=== PATIENT | male | born 1940 | race Caucasian/White ===

== ENCOUNTER 2017-03-08 10:02 | Outpatient (CLI) | payer MEDICARE, OTHER ==
[2017-03-08 17:59] LABS: BASOPHILS % (AUTO) 0.7 %; EOSINOPHILS # (AUTO) 0.3 10^3/uL (0.0-0.7); EOSINOPHILS % (AUTO) 4.8 %; HCT - HEMATOCRIT 44.8 % (42.0-52.0); HGB - HEMOGLOBIN 15.2 g/dL (14.0-18.0); LYMPHOCYTES # (AUTO) 0.9 10^3/uL (1.5-3.5); LYMPHOCYTES % (AUTO) 16.6 %; MONOCYTES # (AUTO) 0.5 10^3/uL (0.0-1.0); MONOCYTES % (AUTO) 9.3 %; NEUTROPHILS # (AUTO) 3.8 10^3/uL (1.5-6.6); NEUTROPHILS % (AUTO) 68.6 %; RED BLOOD COUNT 4.62 10^6/uL (4.70-6.10); RED CELL DISTRIBUTION WIDTH 13.2 % (12.0-15.0); UNCORRECTED WHITE BLOOD COUNT 5.6 x10^3/uL; WHITE BLOOD COUNT 5.6 x10^3/uL (4.8-10.8)
[2017-03-08 18:29] LABS: ALBUMIN/GLOBULIN RATIO 2.1 (1.0-2.2); BUN - BLOOD UREA NITROGEN 15 mg/dL (6-20); CALCIUM 9.4 mg/dL (8.5-10.3); CARBON DIOXIDE - CO2 27 mmol/L (21-32); CHLORIDE 101 mmol/L (101-111); CHOL/HDL RATIO 2.8 (<5.0); CHOLESTEROL 187 mg/dL; CREATININE 0.6 mg/dL (0.6-1.2); GFR - MDRD 132 (>89); GLUCOSE 103 mg/dL (70-100); HDL CHOLESTEROL 68 mg/dL; LDL/HDL RATIO 1.6 (<3.6); SODIUM 136 mmol/L (135-145); TOTAL PROTEIN 6.6 g/dL (6.7-8.2); TRIGLYCERIDES 63 mg/dL; VLDL CHOLESTEROL 13 mg/dL
== END 2017-03-08 10:03 | disposition home or self-care (01) ==
LOC: LAB.F 10:02
PROVIDERS: ATTEND Physician Assistant Medical
DX: R97.20 Elevated prostate specific antigen [PSA] (principal); E78.5 Hyperlipidemia, unspecified; I10 Essential (primary) hypertension; M17.9 Osteoarthritis of knee, unspecified
CPT/HCPCS: 36415; 80053; 80061; 85025; G0103; 84153

== ENCOUNTER 2017-04-08 12:08 | Emergency (ER) | payer MEDICARE, OTHER ==
[2017-04-08 12:16] VITALS: BP 152/60
[2017-04-08 12:45] LABS: PH,URINE 6.5 PH (5.0-7.5)
[2017-04-08 13:10] LABS: BILIRUBIN,URINE NEGATIVE (NEGATIVE); UA w/ MICROSCOPIC CHARGE YES
[2017-04-08 13:13] LABS: UR CULTURE IF IND INDICATED
--- NOTE | 2017-04-08 13:13 | ED Physician Documentation ---
PD HPI MALE - Stated complaint Stated Complaint: MALE URINATING BLOOD - Chief complaint Chief Complaint: General - History obtained from History obtained from: Patient - History of Present Illness Timing - onset: Yesterday Timing - details: Abrupt onset, Still present Associated symptoms: Dysuria, Urinary frequency, Hematuria Similar symptoms before: Has not had sx before Recently seen: Not recently seen Review of Systems Constitutional: reports: Chills, Myalgias (since yesterday). denies: Fever Nose: denies: Rhinorrhea / runny nose, Congestion Throat: denies: Sore throat Respiratory: denies: Cough GI: denies: Abdominal Pain, Vomiting, Diarrhea : reports: Dysuria, Frequency. denies: Discharge Skin: denies: Rash, Lesions PD PAST MEDICAL HISTORY - Past Medical History Past Medical History: Yes Cardiovascular: Hypertension Other Past Medical History: uti - Past Surgical History Past Surgical History: Yes - Present Medications Home Medications: Ambulatory Orders Medication Instructions Recorded Confirmed Blood Pressure Med And Water Pill 04/08/17 Sulfamethox/Trimeth 800/160 1 each PO BID #14 tablet 04/08/17 [Bactrim Ds 800/160] - Allergies Allergies/Adverse Reactions: Allergies Allergy/AdvReac Type Severity Reaction Status Date / Time No Known Drug Allergies Allergy Verified 04/08/17 12:17 - Social History Does the pt smoke?: No Smoking Status: Never smoker Does the pt drink ETOH?: Yes PD ED PE NORMAL - Vitals Vital signs reviewed: Yes - General General: Alert and oriented X 3, No acute distress, Well developed/nourished - Neck Neck: Supple, no meningeal sign, No adenopathy - Cardiac Cardiac: RRR, No murmur - Respiratory Respiratory: Clear bilaterally - Abdomen Abdomen: Soft, Non tender - Male Male : 3D Technologist 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 no scrotal swelling nor tenderness. No hernia. ) - Back Back: No CVA TTP - Derm Derm: Normal color, Warm and dry, No rash Results - Vitals Vitals: Vital Signs - 24 hr 04/08/17 12:13 Temperature 36.8 C Heart Rate 76 Respiratory 18 Rate Blood Pressure 152/60 H O2 Saturation 99 Oxygen O2 Source Room air - Labs Labs: Laboratory Tests 04/08/17 02:20 Urine Color DARK YELLOW Urine Clarity CLOUDY Urine pH 6.5 Ur Specific [place] 1.020 Urine Protein 100 H Urine Glucose (UA) NEGATIVE Urine Ketones TRACE Urine Occult Blood LARGE H Urine Nitrite NEGATIVE Urine Bilirubin NEGATIVE Urine Urobilinogen 0.2 (NORMAL) Ur Leukocyte Esterase TRACE H Urine RBC TNTC H Urine WBC 6-10 H Ur Squamous Epith Cells RARE Squamous Urine Bacteria Few Ur Microscopic Review INDICATED Urine Culture Comments INDICATED PD MEDICAL DECISION MAKING - ED course Complexity details: reviewed results, considered differential (symptoms an UA most c/w UTI. ), d/w patient Departure - Departure Disposition: Home, Self Care Clinical Impression: UTI (urinary tract infection) Qualifiers: Urinary tract infection type: acute cystitis Hematuria presence: with hematuria Qualified Code(s): N30.01 - Acute cystitis with hematuria Condition: Stable Record reviewed to determine appropriate education?: Yes Instructions: ED UTI Cystitis Male Follow-Up: Michaelle Gill PA-C [Primary Care Provider] - Prescriptions: Sulfamethox/Trimeth 800/160 [Bactrim Ds 800/160] 1 each PO BID #14 tablet Comments: Drink adequate fluids. Bactrim twice daily for a week for infection. Recheck if not improved over the next few days. Discharge Date/Time: 04/08/17 13:33
[2017-04-08] MEDS ORDERED: SULFAMETH/TRIMETH DS 800/160 MG TABLET PO STA (13:26)
[2017-04-08] MEDS ORDERED: SULFAMETH/TRIMETH DS 800/160 MG TABLET PO ONE (13:27)
== END 2017-04-08 13:33 | disposition home or self-care (01) ==
LOC: ED 12:08
DX: N30.01 Acute cystitis with hematuria (principal); Z87.440 Personal history of urinary (tract) infections; I10 Essential (primary) hypertension
CPT/HCPCS: 81001; 87077; 87086; 87181; 99283; A9270; 81003

== ENCOUNTER 2017-09-18 08:00 | Outpatient (CLI) | payer MEDICARE, OTHER | END 2017-09-18 23:59 | disposition home or self-care (01) | LOC: LAB.F 08:00 | PROVIDERS: ATTEND Urology | DX: R97.20 Elevated prostate specific antigen [PSA] (principal) | CPT/HCPCS: 36415; 84153 ==

== ENCOUNTER 2018-03-12 09:23 | Outpatient (CLI) | payer MEDICARE, OTHER ==
[2018-03-12 17:43] LABS: BASOPHILS # (AUTO) 0.1 10^3/uL (0.0-0.1); BASOPHILS % (AUTO) 0.9 %; EOSINOPHILS # (AUTO) 0.3 10^3/uL (0.0-0.7); EOSINOPHILS % (AUTO) 5.1 %; LYMPHOCYTES # (AUTO) 0.9 10^3/uL (1.5-3.5); LYMPHOCYTES % (AUTO) 14.8 %; MEAN CORPUSCULAR HEMOGLOBIN 32.6 pg (27.0-31.0); MEAN CORPUSCULAR HGB CONC 33.8 g/dL (32.0-36.0); MEAN CORPUSCULAR VOLUME 96.4 fL (80.0-94.0); MEAN PLATELET VOLUME 8.2 fL (7.4-11.4); MONOCYTES # (AUTO) 0.5 10^3/uL (0.0-1.0); MONOCYTES % (AUTO) 8.4 %; NEUTROPHILS # (AUTO) 4.3 10^3/uL (1.5-6.6); NEUTROPHILS % (AUTO) 70.8 %; PLT - PLATELET COUNT 204 10^3/uL (130-450); RED CELL DISTRIBUTION WIDTH 13.4 % (12.0-15.0); WHITE BLOOD COUNT 6.1 x10^3/uL (4.8-10.8)
[2018-03-12 17:55] LABS: ALBUMIN 3.9 g/dL (3.2-5.5); ALBUMIN/GLOBULIN RATIO 1.3 (1.0-2.2); ALKALINE PHOSPHATASE 60 IU/L (42-121); ALT ALANINE AMINOTRANSFERASE 19 IU/L (10-60); AST ASPARTATE AMINOTRANSFERASE 26 IU/L (10-42); BILIRUBIN,TOTAL 0.9 mg/dL (0.2-1.0); BUN - BLOOD UREA NITROGEN 18 mg/dL (6-20); CALCIUM 9.1 mg/dL (8.5-10.3); CARBON DIOXIDE - CO2 27 mmol/L (21-32); CHLORIDE 98 mmol/L (101-111); CHOL/HDL RATIO 2.1 (<5.0); CHOLESTEROL 158 mg/dL; CREATININE 0.7 mg/dL (0.6-1.2); GFR - MDRD 110 (>89); GLUCOSE 101 mg/dL (70-100); HDL CHOLESTEROL 74 mg/dL; LDL CHOLESTEROL,CALCULATED 68 mg/dL; LDL/HDL RATIO 0.9 (<3.6); SODIUM 134 mmol/L (135-145); TOTAL PROTEIN 6.8 g/dL (6.7-8.2); VLDL CHOLESTEROL 16 mg/dL
== END 2018-03-12 09:24 | disposition home or self-care (01) ==
LOC: LAB.F 09:23
PROVIDERS: ATTEND Physician Assistant Medical
DX: E78.5 Hyperlipidemia, unspecified (principal); R97.20 Elevated prostate specific antigen [PSA]; J44.9 Chronic obstructive pulmonary disease, unspecified; I10 Essential (primary) hypertension
CPT/HCPCS: 36415; 80053; 80061; 83721; 84153; 85025

== ENCOUNTER 2018-10-10 09:24 | Outpatient (CLI) | payer MEDICARE, OTHER ==
[2018-10-10 19:06] LABS: PSA FREE 0.63 ng/mL (0.16-2.81)
[2018-10-10 19:07] LABS: PSA TOTAL 3.215 ng/mL (0.000-2.000)
== END 2018-10-10 09:25 | disposition home or self-care (01) ==
LOC: LAB.F 09:24
PROVIDERS: ATTEND Physician Assistant Medical
DX: R97.20 Elevated prostate specific antigen [PSA] (principal)
CPT/HCPCS: 36415; 84153; 84154

== ENCOUNTER 2019-04-04 09:21 | Outpatient (CLI) | payer MEDICARE, OTHER ==
[2019-04-04 17:41] LABS: BASOPHILS # (AUTO) 0.1 10^3/uL (0.0-0.1); BASOPHILS % (AUTO) 1.7 %; EOSINOPHILS # (AUTO) 0.3 10^3/uL (0.0-0.7); EOSINOPHILS % (AUTO) 9.5 %; HGB - HEMOGLOBIN 13.8 g/dL (14.0-18.0); LYMPHOCYTES # (AUTO) 0.8 10^3/uL (1.5-3.5); LYMPHOCYTES % (AUTO) 23.9 %; MEAN CORPUSCULAR HEMOGLOBIN 35.6 pg (27.0-31.0); MEAN CORPUSCULAR HGB CONC 35.6 g/dL (32.0-36.0); MEAN PLATELET VOLUME 9.9 fL (7.4-11.4); MONOCYTES # (AUTO) 0.6 10^3/uL (0.0-1.0); MONOCYTES % (AUTO) 16.7 %; NEUTROPHILS # (AUTO) 1.7 10^3/uL (1.5-6.6); NEUTROPHILS % (AUTO) 47.9 %; PLT - PLATELET COUNT 174 10^3/uL (130-450); RED BLOOD COUNT 3.88 10^6/uL (4.70-6.10); RED CELL DISTRIBUTION WIDTH 13.7 % (12.0-15.0); WHITE BLOOD COUNT 3.5 x10^3/uL (4.8-10.8)
[2019-04-04 18:29] LABS: ALBUMIN/GLOBULIN RATIO 1.5 (1.0-2.2); ALKALINE PHOSPHATASE 50 IU/L (42-121); ALT ALANINE AMINOTRANSFERASE 17 IU/L (10-60); AST ASPARTATE AMINOTRANSFERASE 22 IU/L (10-42); BUN - BLOOD UREA NITROGEN 20 mg/dL (6-20); CALCIUM 9.2 mg/dL (8.5-10.3); CARBON DIOXIDE - CO2 28 mmol/L (21-32); CHLORIDE 101 mmol/L (101-111); CHOL/HDL RATIO 2.9 (<5.0); CHOLESTEROL 224 mg/dL; CREATININE 0.8 mg/dL (0.6-1.2); GFR - MDRD 94 (>89); GLUCOSE 100 mg/dL (70-100); HDL CHOLESTEROL 76 mg/dL; LDL CHOLESTEROL,CALCULATED 140 mg/dL; LDL/HDL RATIO 1.8 (<3.6); SODIUM 137 mmol/L (135-145); TOTAL PROTEIN 6.6 g/dL (6.7-8.2); VLDL CHOLESTEROL 8 mg/dL
== END 2019-04-04 09:22 | disposition home or self-care (01) ==
LOC: LAB.S 09:21
PROVIDERS: ATTEND Physician Assistant Medical
DX: I10 Essential (primary) hypertension (principal); E78.5 Hyperlipidemia, unspecified
CPT/HCPCS: 36415; 80053; 80061; 83721; 84443; 85025

== ENCOUNTER 2019-05-15 15:14 | Outpatient (CLI) | payer MEDICARE, OTHER ==
[2019-05-15 17:27] LABS: BASOPHILS # (AUTO) 0.1 10^3/uL (0.0-0.1); BASOPHILS % (AUTO) 0.9 %; EOSINOPHILS # (AUTO) 0.4 10^3/uL (0.0-0.7); EOSINOPHILS % (AUTO) 6.4 %; HGB - HEMOGLOBIN 14.2 g/dL (14.0-18.0); LYMPHOCYTES % (AUTO) 18.4 %; MEAN CORPUSCULAR HEMOGLOBIN 33.5 pg (27.0-31.0); MEAN CORPUSCULAR HGB CONC 34.5 g/dL (32.0-36.0); MEAN CORPUSCULAR VOLUME 97.2 fL (80.0-94.0); MEAN PLATELET VOLUME 9.4 fL (7.4-11.4); MONOCYTES # (AUTO) 0.7 10^3/uL (0.0-1.0); MONOCYTES % (AUTO) 12.3 %; NEUTROPHILS # (AUTO) 3.4 10^3/uL (1.5-6.6); NEUTROPHILS % (AUTO) 61.8 %; PLT - PLATELET COUNT 202 10^3/uL (130-450); RED BLOOD COUNT 4.24 10^6/uL (4.70-6.10); RED CELL DISTRIBUTION WIDTH 12.6 % (12.0-15.0); WHITE BLOOD COUNT 5.4 x10^3/uL (4.8-10.8)
[2019-05-15 17:39] LABS: % IRON SATURATION 26 % (20-50); IRON 90 ug/dL (45-182); TOTAL IRON BINDING CAPACITY 347 ug/dL (250-450); TRANSFERRIN 248 mg/dL (180-329)
[2019-05-15 17:54] LABS: FERRITIN 48.6 ng/mL (23.9-336.2)
[2019-05-15 17:57] LABS: FOLATE 18.92 ng/mL (5.90 - >24.8)
== END 2019-05-15 15:15 | disposition home or self-care (01) ==
LOC: LAB.S 15:14
PROVIDERS: ATTEND Physician Assistant Medical
DX: D64.9 Anemia, unspecified (principal)
CPT/HCPCS: 36415; 82607; 82728; 82746; 82747; 83540; 84466; 85025

== ENCOUNTER 2020-03-19 12:11 | Outpatient (CLI) | payer MEDICARE, OTHER ==
--- NOTE | 2020-03-19 12:49 | XRAY Report ---
PROCEDURE: Ankle 3 View LT INDICATIONS: PRESSURE ULCER TECHNIQUE: 3 views of the ankle were acquired. COMPARISON: None FINDINGS: A metallic BB marker was placed on the skin at the site of the patient's ulcer, overlying the lateral malleolus. There is no definite osteolytic lesion of the underlying inferior lateral malleolus as we ll as the adjacent lateral process of the talus. There are severe degenerative changes in the ankle m ortise. IMPRESSION: Soft tissue ulcer adjacent to the lateral malleolus. No definite evidence of an underlyin g destructive osseous lesion. Reviewed by: Noah Coker MD on 03/19/2020 12:48 PM PDT Approved by: Noah Coker MD on 03/19/2020 12:48 PM PDT Station ID: [id number]
== END 2020-03-19 12:12 | disposition home or self-care (01) ==
LOC: DI 12:11
PROVIDERS: ATTEND Podiatrist
DX: L89.529 Pressure ulcer of left ankle, unspecified stage (principal)

== ENCOUNTER 2020-08-28 09:39 | Outpatient (CLI) | payer MEDICARE, OTHER ==
[2020-08-28 14:30] LABS: BASOPHILS % (AUTO) 0.9 %; EOSINOPHILS # (AUTO) 0.4 10^3/uL (0.0-0.7); EOSINOPHILS % (AUTO) 7.9 %; HGB - HEMOGLOBIN 14.6 g/dL (14.0-18.0); LYMPHOCYTES # (AUTO) 0.8 10^3/uL (1.5-3.5); MEAN CORPUSCULAR HEMOGLOBIN 34.8 pg (27.0-31.0); MEAN CORPUSCULAR HGB CONC 35.4 g/dL (32.0-36.0); MEAN CORPUSCULAR VOLUME 98.3 fL (80.0-94.0); MEAN PLATELET VOLUME 10.2 fL (7.4-11.4); MONOCYTES # (AUTO) 0.5 10^3/uL (0.0-1.0); MONOCYTES % (AUTO) 10.4 %; NEUTROPHILS % (AUTO) 63.4 %; PLT - PLATELET COUNT 193 10^3/uL (130-450); RED CELL DISTRIBUTION WIDTH 12.5 % (12.0-15.0); WHITE BLOOD COUNT 4.7 x10^3/uL (4.8-10.8)
== END 2020-08-28 09:40 | disposition home or self-care (01) ==
LOC: LAB.S 09:39
PROVIDERS: ATTEND Physician Assistant Medical
DX: E78.5 Hyperlipidemia, unspecified (principal); D64.9 Anemia, unspecified
CPT/HCPCS: 36415; 80053; 80061; 83721; 85025

== ENCOUNTER 2020-08-31 07:00 | Outpatient (CLI) | payer MEDICARE, OTHER ==
[2020-08-31 19:03] LABS: ALBUMIN 4.4 g/dL (3.2-5.5); ALBUMIN/GLOBULIN RATIO 1.8 (1.0-2.2); ALKALINE PHOSPHATASE 60 IU/L (42-121); ALT ALANINE AMINOTRANSFERASE 17 IU/L (10-60); AST ASPARTATE AMINOTRANSFERASE 22 IU/L (10-42); BILIRUBIN,TOTAL 1.1 mg/dL (0.2-1.0); BUN - BLOOD UREA NITROGEN 20 mg/dL (6-20); CALCIUM 9.2 mg/dL (8.5-10.3); CARBON DIOXIDE - CO2 28 mmol/L (21-32); CHLORIDE 100 mmol/L (101-111); CHOL/HDL RATIO 3.2 (<5.0); CHOLESTEROL 260 mg/dL; CREATININE 0.7 mg/dL (0.6-1.2); GLUCOSE 100 mg/dL (70-100); HDL CHOLESTEROL 81 mg/dL; LDL CHOLESTEROL,CALCULATED 168 mg/dL; LDL/HDL RATIO 2.1 (<3.6); SODIUM 136 mmol/L (135-145); TOTAL PROTEIN 6.9 g/dL (6.7-8.2); VLDL CHOLESTEROL 11 mg/dL
== END 2020-08-31 23:59 | disposition home or self-care (01) ==
LOC: LAB.WCP 07:00
PROVIDERS: ATTEND Physician Assistant Medical
DX: E78.5 Hyperlipidemia, unspecified (principal)
CPT/HCPCS: 36415; 80053; 80061; 83721

== ENCOUNTER 2020-10-12 14:28 | Day surgery (SDC) | payer MEDICARE, OTHER ==
[2020-10-12] MEDS ORDERED: LACTATED RINGERS 1,000 ML IV ONE (14:33)
--- NOTE | 2020-10-12 15:38 | ANESTHESIA ---
Pre-Anesthesia VS, & Labs - Diagnosis screening - Procedure colonoscopy Vital Signs: Temp Pulse Resp BP Pulse Ox 36.2 C L 77 14 180/86 H 96 10/12/20 14:33 10/12/20 14:33 10/12/20 14:33 10/12/20 14:33 10/12/20 14:33 Height: 5 ft 11 in Weight (kg): 76.6 kg Body Mass Index: 23.6 BMI Classification: Healthy weight - NPO >8 hours - Lab Results Lab results reviewed: Yes Home Medications and Allergies Home Medications: Ambulatory Orders Ascorbic Acid [Vitamin C] 1,000 mg PO DAILY 10/05/20 Flaxseed Oil 1,000 mg PO DAILY 10/05/20 Multivitamin 1 each PO DAILY 10/05/20 Albuterol Sulf [Ventolin Hfa Inhaler] 1 - 2 puffs INH Q4HR PRN 07/24/17 Fluticasone [Flonase] 1 sprays SANDRA DAILY 07/24/17 Fluticasone/Salmeterol [Advair 250-50 Diskus] 1 each IH DAILY 07/24/17 Hydrochlorothiazide 12.5 mg PO DAILY 07/24/17 lisinopriL [Lisinopril] 10 mg PO DAILY 07/24/17 Ascorbic Acid [Vitamin C] 1,000 mg PO DAILY 10/05/20 Flaxseed Oil 1,000 mg PO DAILY 10/05/20 Multivitamin 1 each PO DAILY 10/05/20 Allergies/Adverse Reactions: Allergies Allergy/AdvReac Type Severity Reaction Status Date / Time No Known Drug Allergies Allergy Verified 04/08/17 12:17 Anes History & Medical History - Anesthetic History Anesthesia Complications: reports: No previous complications Family history of Anesthesia Complications: Denies Family history of Malignant Hyperthermia: Denies - Medical History Cardiovascular: reports: Hypertension, High cholesterol Pulmonary: reports: COPD Gastrointestinal: reports: Colon polyps Urinary: reports: None Musculoskeletal: reports: Osteoarthritis Endocrine/Autoimmune: reports: None Skin: reports: None Smoking Status: Never smoker - Surgical History General: Colonoscopy, Other Orthopedic: Knee replacement, Shoulder arthroplasty Exam General: Alert, Oriented x3, Cooperative Dental: WNL Mouth Openin Fingerbreadth Neck Mobility: Normal Mallampati classification: II Thyromental Distance: greater than 6 cm Respiratory: Lungs clear, No respiratory distress, Decreased breath sounds Cardiovascular: Regular rate Neurological: Normal speech Mental/Cognitive Status: Alert/Oriented X3, Normal for patient Cognitive Status: Within normal limits Plan Anesthesia Type: MAC Regional Block: Per Surgeon's request for Post Op pain control Consent for Procedure(s) Verified and Reviewed: Yes Code Status: Attempt Resuscitation ASA classification: 2-Mild systemic disease Is this case an emergency?: No
[2020-10-12] MEDS ORDERED: MIDAZOLAM 2 MG/2 ML VIAL ONE (15:42)
[2020-10-12] MEDS ORDERED: PROPOFOL 200 MG/20 ML VIAL IVP ONE ×2 (15:42→16:55)
[2020-10-12] MEDS ORDERED: LIDOCAINE-MPF 2% 5 ML VIAL ONE (15:42)
[2020-10-12] MEDS ORDERED: fentaNYL 100 MCG/2 ML VIAL ONE (15:42)
[2020-10-12] MEDS ORDERED: LACTATED RINGERS 100 ML IV ONE (17:13)
[2020-10-12 17:38] VITALS: BP 130/76
== END 2020-10-12 14:29 | disposition home or self-care (01) ==
LOC: SDS 14:28
PROVIDERS: ATTEND Surgery
DX: Z12.11 Encounter for screening for malignant neoplasm of colon (principal); Z86.010 Personal history of colon polyps; Z90.49 Acquired absence of other specified parts of digestive tract; D64.9 Anemia, unspecified; J44.9 Chronic obstructive pulmonary disease, unspecified; I10 Essential (primary) hypertension; E78.5 Hyperlipidemia, unspecified; M19.012 Primary osteoarthritis, left shoulder; Z79.51 Long term (current) use of inhaled steroids; Z79.1 Long term (current) use of non-steroidal anti-inflammatories (NSAID); Z79.899 Other long term (current) drug therapy; Z87.891 Personal history of nicotine dependence
CPT/HCPCS: G0105; J7120

== ENCOUNTER 2021-01-17 09:35 | Outpatient (CLI) | payer MEDICARE, OTHER ==
[2021-01-17 14:47] LABS: CHOLESTEROL 267 mg/dL; HDL CHOLESTEROL 89 mg/dL; LDL CHOLESTEROL,CALCULATED 167 mg/dL; LDL/HDL RATIO 1.9 (<3.6); TRIGLYCERIDES 56 mg/dL; VLDL CHOLESTEROL 11 mg/dL
== END 2021-01-17 09:36 | disposition home or self-care (01) ==
LOC: LAB.S 09:35
PROVIDERS: ATTEND Physician Assistant Medical
DX: E78.5 Hyperlipidemia, unspecified (principal)
CPT/HCPCS: 36415; 80061; 83721

== ENCOUNTER 2021-04-21 10:00 | Outpatient (CLI) | payer MEDICARE, OTHER ==
[2021-04-21 15:25] LABS: CHOL/HDL RATIO 2.1 (<5.0); CHOLESTEROL 165 mg/dL; HDL CHOLESTEROL 80 mg/dL; TRIGLYCERIDES 33 mg/dL
== END 2021-04-21 10:01 | disposition home or self-care (01) ==
LOC: LAB.S 10:00
PROVIDERS: ATTEND Physician Assistant Medical
DX: E78.5 Hyperlipidemia, unspecified (principal)
CPT/HCPCS: 36415; 80061; 83721

== ENCOUNTER 2021-11-18 08:00 | Outpatient (CLI) | payer MEDICARE, OTHER | END 2021-11-18 08:01 | disposition home or self-care (01) | LOC: LAB.WCP 08:00 | PROVIDERS: ATTEND Physician Assistant Medical | DX: L90.5 Scar conditions and fibrosis of skin (principal) | CPT/HCPCS: 87070; 87205 ==

== ENCOUNTER 2022-03-14 09:55 | Outpatient (CLI) | payer MEDICARE, OTHER ==
[2022-03-14 14:08] LABS: BASOPHILS # (AUTO) 0.1 10^3/uL (0.0-0.1); EOSINOPHILS # (AUTO) 0.4 10^3/uL (0.0-0.7); EOSINOPHILS % (AUTO) 7.2 %; HCT - HEMATOCRIT 40.9 % (42.0-52.0); LYMPHOCYTES # (AUTO) 0.8 10^3/uL (1.5-3.5); LYMPHOCYTES % (AUTO) 16.4 %; MEAN CORPUSCULAR HEMOGLOBIN 33.5 pg (27.0-31.0); MEAN CORPUSCULAR HGB CONC 34.2 g/dL (32.0-36.0); MEAN CORPUSCULAR VOLUME 97.8 fL (80.0-94.0); MEAN PLATELET VOLUME 10.1 fL (7.4-11.4); MONOCYTES # (AUTO) 0.7 10^3/uL (0.0-1.0); NEUTROPHILS # (AUTO) 3.1 10^3/uL (1.5-6.6); PLT - PLATELET COUNT 213 10^3/uL (130-450); RED BLOOD COUNT 4.18 10^6/uL (4.70-6.10); RED CELL DISTRIBUTION WIDTH 13.2 % (12.0-15.0); WHITE BLOOD COUNT 5.1 x10^3/uL (4.8-10.8)
== END 2022-03-14 09:56 | disposition home or self-care (01) ==
LOC: LAB.S 09:55
PROVIDERS: ATTEND Physician Assistant Medical
DX: D64.9 Anemia, unspecified (principal)
CPT/HCPCS: 36415; 85025

== ENCOUNTER 2022-04-08 08:00 | Outpatient (CLI) | payer MEDICARE, OTHER ==
--- NOTE | 2022-04-08 18:26 | XRAY Report ---
PROCEDURE: Lumbar Spine 2 View INDICATIONS: LUMBAR BACK PAIN TECHNIQUE: 3 views of the lumbar spine were acquired. COMPARISON: None. FINDINGS: Bones: This patient has transitional anatomy. For the purposes of this examination, the level with la st well-seen disc space is considered to be L5-S1. By the summary scheme, the level with a tiny vesti gial ribs is considered to be L1. Moderate levoconvex lumbar scoliosis is seen. There is minimal retrolisthesis seen at L1-L2, L2-L3, a nd L3-L4. There is moderate severe disc space narrowing seen at L1-L2, L2-L3, and L3-L4. Mild disc space narrow ing is seen at L4-L5 and L5-S1. No vertebral body compression fractures. No suspicious bony lesions. There is partial visualization of left proximal femur hardware. Soft tissues: Overlying bowel gas pattern is normal. No suspicious soft tissue calcifications. Ath erosclerotic calcification is seen. Numerous soft tissue sutures are seen. IMPRESSION: Moderate levoconvex scoliosis and degenerative changes are seen. If it would be helpful for clinical management decision making, please consider a dedicated, schedule d lumbar MRI for further evaluation (assuming that there is no contraindication). Reviewed by: Taiwo Cole MD on 04/08/2022 5:25 PM [facility] Approved by: Taiwo Cole MD on 04/08/2022 5:25 PM LIBORIO Station ID: [id number]
== END 2022-04-08 23:59 | disposition home or self-care (01) ==
LOC: DI.S 08:00
PROVIDERS: ATTEND Physician Assistant
DX: M47.816 Spondylosis without myelopathy or radiculopathy, lumbar region (principal); M47.817 Spondylosis without myelopathy or radiculopathy, lumbosacral region; M41.9 Scoliosis, unspecified

== ENCOUNTER 2022-05-15 08:47 | Outpatient (CLI) | payer MEDICARE, OTHER ==
--- NOTE | 2022-05-15 09:32 | XRAY Report ---
PROCEDURE: Eye Foreign Body INDICATIONS: PRE MRI TECHNIQUE: A single view of the orbits was acquired. COMPARISON: None FINDINGS: Soft tissues: No metallic foreign bodies are visualized around the orbits. Bones: Bony structures appear unremarkable. Visualized sinuses appear clear. IMPRESSION: No metallic foreign bodies are identified overlying the orbits. Reviewed by: Mera Hill MD on 05/15/2022 9:31 AM PDT Approved by: Mera Hill MD on 05/15/2022 9:31 AM PDT Station ID: [id number]
--- NOTE | 2022-05-15 13:23 | MRI Report ---
PROCEDURE: Lumbar Spine W/O INDICATIONS: LUMBAR RADICULOPATHY TECHNIQUE: Noncontrast sagittal T1 spin echo and T2 fast echo, sagittal STIR, axial T1 and T2 fast spin echo thr ough the lumbar spine. In cases with scoliosis, additional coronal T2 fast spin echo may be performe d. COMPARISON: None. FINDINGS: Image quality: Excellent. Alignment and Curvature: Transitional anatomy. For the purposes of this dictation, axial levels are d escribed as T12/L1 through L5/S1. Careful correlation for appropriate surgical level is recommended. At least moderate levocurvature centered at L1-L2. Mild degenerative retrolisthesis of L2 on L3. Mild degenerative anterolisthesis of L4 on L5. Mild degenerative anterolisthesis of L5 on S1. Bone Marrow: Marrow is of normal overall signal. No acute vertebral body compression fractures. Spinal Cord: Conus medullaris terminates at the L2 level. Visualized cord demonstrates normal signa l and size. Paraspinous Soft Tissues: No paravertebral masses. T12-L1: No canal stenosis or significant foraminal stenosis. L1-L2:Diffuse disc bulge. The distal cord is deviated to the right and is abutted by disc material. N o central canal stenosis. No significant foraminal stenosis. L2-L3: Mild degenerative retrolisthesis of L2 on L3. Bilateral facet hypertrophy. Conus is deviate d to the right. It is abutted by disc material. There is no significant central canal stenosis. There is moderate right foraminal narrowing with flattening deformity on the exiting right L2 nerve root. L3-L4: Disc bulge. Prominent bilateral facet hypertrophy. Severe central canal stenosis and marked bilateral lateral recess stenosis. Moderate to severe bilateral foraminal narrowing with a degree of bilateral foraminal L3 nerve root impingement. L4-L5: Normal in appearance. Large diffuse disc bulge. Marked facet hypertrophy. Severe canal steno sis. Moderate bilateral foraminal narrowing with flattening deformity on the exiting bilateral L4 ner ve roots. L5-S1: Disc bulge. Prominent bilateral facet hypertrophy. No central canal stenosis. Mild to modera te right foraminal narrowing. Moderate to severe left foraminal narrowing with a degree of left elder inal L5 nerve root impingement. IMPRESSION: 1. Transitional anatomy. Careful correlation is required for potential surgical planning. 2. Underlying scoliotic curvature and advanced multilevel facet arthropathy 3. Severe canal stenosis as described above at L3-L4 and L4-L5. 4. Multilevel foraminal narrowing as described above. Reviewed by: Lisandro Bailey MD on 05/15/2022 1:22 PM PDT Approved by: Lisandro Bailey MD on 05/15/2022 1:22 PM PDT Station ID: [id number]
== END 2022-05-15 08:48 | disposition home or self-care (01) ==
LOC: DI 08:47
PROVIDERS: ATTEND Physician Assistant
DX: Z01.818 Encounter for other preprocedural examination (principal); M43.16 Spondylolisthesis, lumbar region; M48.061 Spinal stenosis, lumbar region without neurogenic claudication; M54.16 Radiculopathy, lumbar region; M47.817 Spondylosis without myelopathy or radiculopathy, lumbosacral region; M48.07 Spinal stenosis, lumbosacral region

== ENCOUNTER 2023-09-29 08:00 | Outpatient (CLI) | payer MEDICARE, OTHER ==
[2023-09-29 18:22] LABS: BILIRUBIN,URINE NEGATIVE (NEGATIVE); GLUCOSE, URINE (UA) NEGATIVE (NEGATIVE); KETONES,URINE (UA) NEGATIVE (NEGATIVE); LEUKOCYTE ESTERASE, URINE NEGATIVE (NEGATIVE); NITRITE,URINE NEGATIVE (NEGATIVE); OCCULT BLOOD,URINE LARGE (NEGATIVE); PROTEIN,URINE 30 mg/dL (NEGATIVE); UROBILINOGEN,URINE 0.2 (NORMAL) E.U./dL (NORMAL)
[2023-09-29 18:23] LABS: CLARITY,URINE CLOUDY (CLEAR)
[2023-09-29 18:31] LABS: BACTERIA,URINE Rare /HPF (None Seen); RBC,URINE TNTC /HPF (0-5); SQUAMOUS EPITHELIAL CELL,UR RARE Squamous (<= Few)
== END 2023-09-29 23:59 | disposition home or self-care (01) ==
LOC: LAB.S 08:00
PROVIDERS: ATTEND Emergency Medicine
DX: R30.0 Dysuria (principal)
CPT/HCPCS: 81001

== ENCOUNTER 2024-12-17 09:38 | Inpatient (IN) ==
--- OUTSIDE RECORDS SUMMARY | 2024-12-17 09:51 | EXTERNAL MEDICAL SUMMARY RPT | Continuity of Care Document ---
Author Organization Reading Address [address] [place] [address] [address] Phone Problems date description facility 2024-09-18 12:15 Chest pain, unspecified [facility] 2024-10-21 08:23 Other symptoms and signs involv ing the nervous system [facility] 2024-10-31 12:52 Dysphasia [facility] 2024-11-28 00:05 Paroxysmal atrial fibrillation [facility] 2024-11-28 09:39 Paroxysmal atrial fibrillation [facility] 2024-11-28 09:39 Other symptoms and signs involv ing the nervous system [facility] 2024-11-28 09:39 Retention of urine, unspecified [facility] 2024-12-11 00:05 Elevated erythrocyte sedimentat ion rate [facility] 2024-12-11 12:25 Elevated erythrocyte sedimentat ion rate [facility] 2024-12-11 12:25 Abnormality of albumin [facility] 2024-12-12 05:47 Peripheral vascular disease, un specified [facility] 2024-12-12 05:47 Pressure ulcer of other site, [address] 2024-12-15 11:59 Peripheral vascular disease, un specified [facility] 2024-12-15 11:59 [facility] 2024-12-15 12:02 Peripheral vascular disease, un specified [facility] 2024-12-15 12:02 Pressure ulcer of other site, s [facility] 2024-12-16 09:13 Peripheral vascular disease, un specified [facility] 2024-12-16 09:13 Pressure ulcer of sacral region , stage 4 [facility] 2024-12-16 09:13 Pressure ulcer of other site, s [facility] 4 [facility] 2024-12-16 09:13 Non-pressure chronic ulcer of skin of other sites with fat layer exposed [facility] 2024-12-16 22:03 Urinary tract infection, site n ot specified [facility] 2024-12-16 22:03 Benign prostatic hyp erplasia without lower urinary tract symptoms [facility] 2024-12-17 08:28 Urinary tract infection, site n ot specified [facility] 2024-12-17 08:28 Benign prostatic hyp erplasia without lower urinary tract symptoms [facility] 2024-12-17 08:30 Urinary tract infection, site n ot specified [facility] 2024-12-17 08:30 Benign prostatic hyp erplasia without lower urinary tract symptoms [facility] Results/Labs test date facility value unit notes Result panel 1 CULTURE, BLOOD #1 2024-10-19 08:32 [facility] NG1D NO GROWTH AFTER 1 DAY (missing) (missing) CULTURE, BLOOD #1 2024-10-19 08:32 [facility] NG2D NO GROWTH AFTER 2 DAYS (missing) (missing) CULTURE, BLOOD #1 2024-10-19 08:32 [facility] NG5D NO GROWTH AFTER 5 DAYS (missing) (missing) Result panel 2 EOSINOPHILS # (AUTO) 2024-10-19 08:37 [facility] 0.0 10 3/ul (missing) NRBC ABSOLUTE COUNT (AUTO) 2024-10-19 08:37 [facility] 0.02 x10 3/ul (missing) BASOPHILS # (AUTO) 2024-10-19 08:37 [facility] 0.1 10 3/ul (missing) NUCLEATED RED BLOOD CELLS AUTO 2024-10-19 08:37 [facility] 0.2 /100wbc (missing) MONOCYTES # (AUTO) 2024-10-19 08:37 [facility] 0.5 10 3/ul (missing) LYMPHOCYTES # (AUTO) 2024-10-19 08:37 [facility] 0.5 10 3/ul (missing) BILIRUBIN,TOTAL 2024-10-19 08:37 [facility] 0.6 mg/dl As of March 2023 testing method has changed, this may include reference ranges. RBC MORPHOLOGY (MULTIPLE) 2024-10-19 08:37 [facility] 1+ POLYCHROMASIA (missing ) (missing) ALBUMIN/GLOBULIN RATIO 2024-10-19 08:37 [facility] 1.1 (missing ) (missing) GLUCOSE 2024-10-19 08:37 [facility] 109 mg/dl As of March 2023 testing method has changed, this may include reference ranges. WHITE BLOOD COUNT 2024-10-19 08:37 [facility] 11.6 x10 3/ul (missing) MEAN PLATELET VOLUME 2024-10-19 08:37 [facility] 11.7 fl (missing) HGB - HEMOGLOBIN 2024-10-19 08:37 [facility] 13.1 g/dl (missing) LIPASE 2024-10-19 08:37 [facility] 130 u/l As of March 2023 testing method has changed, this may include reference ranges. SODIUM 2024-10-19 08:37 [facility] 134 mmol/l As of March 2023 testing method has changed, this may include reference ranges. BUN - BLOOD UREA NITROGEN 2024-10-19 08:37 [facility] 136 mg/dl Critical result BUN 136 mg/dL called to and read back by MICHI Trotter RN/ED at 19-Oct-2024 09:22 by rodolfo. As of March 2023 testing method has changed, this may include reference ranges. CARBON DIOXIDE - CO2 2024-10-19 08:37 [facility] 14 mmol/l As of March 2023 testing method has changed, this may include reference ranges. RED CELL DISTRIBUTION WIDTH 2024-10-19 08:37 [facility] 15.4 % (missing) TROPONIN I HIGH SENSITIVITY 2024-10-19 08:37 [facility] 150.3 ng/l Critical result [facility] 150.3 pg/mL called to and read back by MICHI Trotter RN/ED at 19-Oct-2024 09:20 by rodolfo. A HIGH SENSITIVITY TROPONIN result of >= 14.9 ng/L for females is considered POSITIVE. A HIGH SENSITIVITY TROPONIN result of >= 19.8 ng/L for males is considered POSITIVE. A HIGH SENSITIVITY TROPONIN result of >= 17.9 ng/L for unspecified is considered POSITIVE. PLT - PLATELET COUNT 2024-10-19 08:37 [facility] 196 10 3/ul (missing) ALT ALANINE AMINOTRANSFERASE 2024-10-19 08:37 [facility] 198 iu/l As of March 2023 testing method has changed, this may include reference ranges. AST ASPARTATE AMINOTRANSFERASE 2024-10-19 08:37 [facility] 199 iu/l As of March 2023 testing method has changed, this may include reference ranges. LACTIC ACID, VENOUS 2024-10-19 08:37 [facility] 2.9 mmol/l N As of March 2023 testing method has changed, this may include reference ranges. ALKALINE PHOSPHATASE 2024-10-19 08:37 [facility] 239 iu/l As of March 2023 testing method has changed, this may include reference ranges. ANION GAP 2024-10-19 08:37 [facility] 25.0 (missing ) (missing) GLOBULIN 2024-10-19 08:37 [facility] 3.3 g/dl (missing) ALBUMIN 2024-10-19 08:37 [facility] 3.6 g/dl As of March 2023 testing method has changed, this may include reference ranges. MEAN CORPUSCULAR HEMOGLOBIN 2024-10-19 08:37 [facility] 30.8 pg (missing) MEAN CORPUSCULAR HGB CONC 2024-10-19 08:37 [facility] 32.0 g/dl (missing) RED BLOOD COUNT 2024-10-19 08:37 [facility] 4.25 10 6/ul (missing) HCT - HEMATOCRIT 2024-10-19 08:37 [facility] 41.0 % (missing) TOTAL PROTEIN 2024-10-19 08:37 [facility] 6.9 g/dl As of March 2023 testing method has changed, this may include reference ranges. GFR - MDRD 2024-10-19 08:37 [facility] 7 (missing ) Social History date description facility
--- NOTE | 2024-12-17 09:52 | ED Physician Documentation ---
History of Present Illness Stated complaint Stated Complaint: DECREASED LOC Chief complaint Chief Complaint: General History obtained from History obtained from: Patient, Family and EMS Additonal information Additional information: This is an 84-year-old gentleman who is at [facility] assisted living after a stroke. He was sent to [facility] in critical condition by my partner on October 19 and now is in [facility] for recovery. 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 He has indwelling Marie catheter. This morning he became lethargic and slow to answer questions. History from patient and EMS. He is having a lot of abdominal pain and feeling gassy. No reported fevers. Prehospital blood pressures were 70 systolic. Meds/Allgy Home Medications Ambulatory Orders Medication Instructions Recorded Confirmed ascorbic acid (vitamin C) 1,000 mg 1,000 mg PO DAILY 10/05/20 12/09/24 tablet multivitamin 1 ea PO DAILY 10/05/20 12/09/24 atorvastatin 40 mg tablet (Lipitor) 40 mg PO QDAY #90 tabs 10/16/24 12/09/24 clopidogrel 75 mg tablet 75 mg PO QDAY #90 tabs 10/16/24 12/09/24 empagliflozin 10 mg tablet 10 mg PO QDAY #90 tabs 10/16/24 12/09/24 ezetimibe 10 mg tablet 10 mg PO QDAY #90 tabs 10/16/24 12/09/24 fluticasone propionate 50 1 spray intranasal DAILY #16 grams 10/16/24 12/09/24 mcg/actuation nasal spray,suspension gabapentin 300 mg capsule 300 mg PO BID #180 caps 10/16/24 12/09/24 lisinopril 5 mg tablet 5 mg PO QDAY #90 tabs 10/16/24 12/09/24 nitroglycerin 0.4 mg sublingual 0.4 mg sublingual Q5M PRN chest 10/16/24 12/09/24 tablet pain #20 tabs spironolactone 25 mg tablet 25 mg PO QDAY #90 tabs 10/16/24 12/09/24 tiotropium bromide 2.5 2 inh inhalation QAM #4 grams 10/16/24 12/09/24 mcg/actuation mist for inhalation (Spiriva Respimat) apixaban 5 mg tablet 5 mg PO BID 12/09/24 12/09/24 carvedilol 3.125 mg tablet 3.125 mg PO BID 12/09/24 12/09/24 oxycodone 5 mg tablet 2.5 mg PO Q4H PRN pain 12/09/24 12/09/24 Allergies Allergies Allergy/AdvReac Type Severity Reaction Status Date / Time No Known Drug Allergies Allergy Verified 12/17/24 09:51 PFSH Active Problems All Active Problems (Updated 12/17/24 @ 11:43 by Aaron Valles MD) Constipation (Acute) Catheter-associated urinary tract infection (Acute) Sepsis (Acute) Non-pressure chronic ulcer of skin of other sites with fat layer exposed (Acute) Arterial insufficiency of lower extremity (Acute) Pressure injury of sacral region, stage 4 (Acute) Pressure injury of right calf, stage 4 (Acute) Closed head injury (Acute) Encephalopathy (Acute) Dehydration (Acute) Sepsis (Acute) Non-ST elevation [place] (NSTEMI) (Acute) Urinary tract infection (Acute) Acute renal failure (Acute) Pericarditis (Acute) Allergic rhinitis (Acute) Hyperlipidemia (Acute) Hx of adenomatous colonic polyps (Acute) Atrial fibrillation (Acute) Hematuria (Acute) COPD (chronic obstructive pulmonary disease) (Chronic) Hypertension, essential, benign (Acute) CHF (congestive heart failure) (Acute) CAD (coronary artery disease) (Acute) Iron deficiency anemia, unspecified (Acute) Arthritis of carpometacarpal (CMC) joint of right thumb (Acute) Medical History Medical History (Updated 12/17/24 @ 11:43 by Aaron Valles MD) Diabetes Social History Social History Smoking Status: Former smoker If you are a former smoker, when did you quit? (Date/Year): 1997 Do you dip or chew tobacco?: No Relationship: Do you feel safe in your home environment?: Yes Suffered physical, verbal, emotional, or financial abuse?: No ETOH Use: None Exam Exam Vital Signs: Vital Signs x48h Temp Pulse Resp BP Pulse Ox 12/17/24 10:30 75 24 113/56 L 96 12/17/24 10:15 71 21 95/61 94 12/17/24 10:10 36.6 C 66 18 78/56 L 95 04/02/25 09:40 36.2 C L 73 14 71/44 L 96 Constitutional He is slow to answer questions with slurred speech but technically alert and oriented knowing the date, where he is and why. He appears frail and pale. Respiratory breath sounds equal bilaterally, normal respiratory effort and clear to auscultation bilaterally Cardiovascular normal heart rate noted, regular rhythm noted and no murmur Gastrointestinal Quite tender in the low abdomen with extensive well-healed ex lap scar from penetrating trauma in [place]. Back/Pelvis There is a very large stage IV pressure ulcer over the sacrum and going poste riorly to the right, potential signs of infection medially. Lateral side looks noninfected. Extremities Stage IV purulent pressure ulcer lateral right lower leg without cellulitis. Psychiatry mental status abnormal (Slow to answer questions but actually alert and oriented.) Results Vitals Vitals: Vital Signs - 24 hr 12/17/24 09:40 12/17/24 10:10 12/17/24 10:15 Temperature 36.2 C L 36.6 C Temperature Source Temporal Artery Scan Oral Pulse Rate 73 66 71 Respiratory Rate 14 18 21 Blood Pressure 71/44 L 78/56 L 95/61 O2 Saturation 96 95 94 O2 Source Room air Room air Room air Pain Intensity 4 12/17/24 10:30 Temperature Temperature Source Pulse Rate 75 Respiratory Rate 24 Blood Pressure 113/56 L O2 Saturation 96 O2 Source Room air Pain Intensity Oxygen O2 Source Room air Labs Labs: Laboratory Tests 12/17/24 10:02 WBC 14.8 H RBC 3.75 L Hgb 11.0 L Hct 35.0 L MCV 93.3 MCH 29.3 MCHC 31.4 L RDW 17.4 H Plt Count 425 MPV 8.1 Neut # (Auto) 13.3 H Lymph # (Auto) 0.4 L [place] # (Auto) 0.9 Eos # (Auto) 0.0 Baso # (Auto) 0.0 Absolute Nucleated RBC 0.00 Nucleated RBC % 0.0 PT 16.4 H INR 1.5 H VBG pH 7.396 VBG pCO2 36.3 L VBG pO2 27.4 VBG HCO3 22.5 L VBG Total CO2 23.6 L VBG O2 Saturation 32.0 L VBG Base Excess -2.6 L Sodium 129 L Potassium 4.0 Chloride 97 L Carbon Dioxide 25 Anion Gap 7.0 BUN 31 H Creatinine 0.8 Estimated GFR (MDRD) 93 Glucose 133 H Lactic Acid 2.0 Calcium 8.5 Magnesium 2.1 Total Bilirubin 0.6 AST 15 ALT 13 Alkaline Phosphatase 112 Total Protein 5.4 L Albumin 2.9 L Globulin 2.5 Albumin/Globulin Ratio 1.2 Rads (name of study) CT of the head was unremarkable: Relevant Findings:: Final report received and EMP independent interpretation of test (NAD) CT of the abdomen and pelvis demonstrates thickened bladder wall and excess colonic stool: Relevant Findings:: Final report received and EMP independent interpretation of test PD Medical Decision Making ED course ED course: This is a 84-year-old gentleman with multiple chronic medical conditions in a SNF for wound care and rehab right now. He presents with hypotension, Lower abdominal tenderness, chronic wounds on the sacrum and right leg and confusion. He is not febrile. He did have a urinalysis done last night which is reviewed, it was positive and his preliminarily growing Proteus species. Initial blood pressure about 70/50 and this improved significantly with IV fluids. He was administered Rocephin after blood cultures for UTI plus or minus other source of sepsis. Head CT was done which was negative. Labs were obtained which were notable for leukocytosis at 14,000, moderate anemia but this appears chronic, mild elevation in INR, relatively unremarkable venous blood gas, CMP showing hyponatremia about the same as it was a week ago with elevated BUN but relatively preserved renal function and mild hyperglycemia. Spoke with Dr. Haywood for admission at 11:40 AM. The patient and family are counseled as to the diagnosis and need for admission. This document was made in part using voice recognition software, while efforts are made to proofread this document, sound alike an grammatical errors may occur. Discharge Plan Discharge Patient Disposition: [facility] DC/Xfer Condition: Serious Clinical Impression: Pressure injury of right calf, stage 4, Pressure injury of sacral region, stage 4 Sepsis Qualifiers: Sepsis type: sepsis due to unspecified organism Sepsis acute organ dysfunction status: with acute organ dysfunction Severe sepsis acute organ dysfunction type: encephalopathy Severe sepsis shock status: without septic shock Qualified Code(s): A41.9 - Sepsis, unspecified organism; R65.20 - Severe sepsis without septic shock; G93.41 - Metabolic encephalopathy CAD (coronary artery disease) Qualifiers: Coronary Disease-Associated Artery/Lesion type: [place] artery [place] vs. transplanted heart: [place] heart Associated angina: without angina Qualified Code(s): I25.10 - Atherosclerotic heart disease of [place] coronary artery without angina pectoris Catheter-associated urinary tract infection Qualifiers: Indwelling urinary catheter type: indwelling urethral catheter Encounter type: initial encounter Qualified Code(s): T83.511A - Infection and inflammatory reaction due to indwelling urethral catheter, initial encounter; N39.0 - Urinary tract infection, site not specified Constipation Qualifiers: Constipation type: slow transit constipation Qualified Code(s): K59.01 - Slow transit constipation Prescriptions: No Action atorvastatin [Lipitor] 40 mg tablet 40 mg PO QDAY Qty: 90 3RF clopidogrel 75 mg tablet 75 mg PO QDAY Qty: 90 3RF empagliflozin 10 mg tablet 10 mg PO QDAY Qty: 90 3RF ezetimibe 10 mg tablet 10 mg PO QDAY Qty: 90 3RF fluticasone propionate 50 mcg/actuation spray,suspension 1 spray intranasal DAILY Qty: 16 3RF gabapentin 300 mg capsule 300 mg PO BID Qty: 180 3RF lisinopril 5 mg tablet 5 mg PO QDAY Qty: 90 3RF nitroglycerin 0.4 mg tablet, sublingual 0.4 mg sublingual Q5M PRN (Reason: chest pain) Qty: 20 1RF Rx Instructions: do not exceed 3 doses per episode spironolactone 25 mg tablet 25 mg PO QDAY Qty: 90 3RF Spiriva Respimat 2.5 mcg/actuation mist 2 inh inhalation QAM Qty: 4 3RF multivitamin 1 EACH tablet 1 ea PO DAILY ascorbic acid (vitamin C) 1,000 MG tablet 1,000 mg PO DAILY carvedilol 3.125 mg tablet 3.125 mg PO BID Rx Instructions: must administer with a meal/food apixaban 5 mg tablet 5 mg PO BID oxycodone 5 mg tablet 2.5 mg PO Q4H PRN (Reason: pain) Print Language: Georgian Stand Alone Forms: PCP List
[2024-12-17 10:07] LABS: BASOPHILS % (AUTO) 0.3 %; EOSINOPHILS % (AUTO) 0.1 %; LYMPHOCYTES # (AUTO) 0.4 10^3/uL (1.5-3.5); LYMPHOCYTES % (AUTO) 2.8 %; MEAN CORPUSCULAR HEMOGLOBIN 29.3 pg (27.0-31.0); MEAN CORPUSCULAR HGB CONC 31.4 g/dL (32.0-36.0); MEAN CORPUSCULAR VOLUME 93.3 fL (80.0-94.0); MEAN PLATELET VOLUME 8.1 fL (7.4-11.4); MONOCYTES # (AUTO) 0.9 10^3/uL (0.0-1.0); MONOCYTES % (AUTO) 6.2 %; NEUTROPHILS # (AUTO) 13.3 10^3/uL (1.5-6.6); NEUTROPHILS % (AUTO) 90.1 %; PLT - PLATELET COUNT 425 10^3/uL (130-450); RED BLOOD COUNT 3.75 10^6/uL (4.70-6.10); RED CELL DISTRIBUTION WIDTH 17.4 % (12.0-15.0); WHITE BLOOD COUNT 14.8 x10^3/uL (4.8-10.8)
[2024-12-17] MEDS: SODIUM CHLORIDE 0.9% 1,000 ML IV STA (10:07)
[2024-12-17 10:13] LABS: INR 1.5 (0.8-1.2); PT - PROTHROMBIN TIME 16.4 secs (9.9-12.6)
--- NOTE | 2024-12-17 10:21 | XRAY Report ---
PROCEDURE: XR Chest 1V INDICATIONS: hypotension TECHNIQUE: One view of the chest was acquired. COMPARISON: Chest x-ray 10/22/2024 FINDINGS: Surgical changes and devices: Right humeral arthroplasty. Lungs and pleura: Lucency is present at the left base. Mediastinum: Mediastinal contours appear normal. Heart size is normal. Bones and chest wall: No suspicious bony lesions. Overlying soft tissues appear unremarkable. IMPRESSION: Left basilar lucency suspected to be artifactual given exposure. Lung markings are difficult to defin itively discern. Repeat view with more optimal positioning is recommended. Reviewed by: Mera Hill MD on 12/17/2024 10:20 AM PDT Approved by: Mera Hill MD on 12/17/2024 10:20 AM PDT Station ID: [id number]
[2024-12-17 10:22] LABS: VBG BASE EXCESS -2.6 mmol/L (-2 - +2); VBG PCO2 36.3 mmHg (41-51); VBG PH 7.396 (7.31-7.41); VBG PO2 27.4 mmHg (25-47); VBG TOTAL CO2 23.6 mmol/L (24-29)
[2024-12-17 10:24] LABS: ALBUMIN 2.9 g/dL (3.2-5.5); ALBUMIN/GLOBULIN RATIO 1.2 (1.0-2.2); BILIRUBIN,TOTAL 0.6 mg/dL (0.2-1.0); CALCIUM 8.5 mg/dL (8.5-10.3); CREATININE 0.8 mg/dL (0.6-1.3); MAGNESIUM 2.1 mg/dL (1.7-2.3); TOTAL PROTEIN 5.4 g/dL (6.4-8.9)
[2024-12-17] MEDS ORDERED: iohexoL-300 100 ML VIAL ONE (10:26)
[2024-12-17] MEDS: iohexoL-300 100 ML VIAL IVP ONE (11:06)
--- NOTE | 2024-12-17 11:12 | CT Report ---
PROCEDURE: CT Head WO INDICATIONS: Acute altered mental status. TECHNIQUE: Noncontrast 4.5 mm thick angled axial sections acquired from the foramen magnum to the vertex. For r adiation dose reduction, the following was used: automated exposure control, adjustment of mA and/or kV according to patient size. COMPARISON: CT head 10/19/2024. FINDINGS: Image quality: Excellent. CSF spaces: Basal cisterns are patent. No extra-axial fluid collections. Ventricles are normal in size and shape. Brain: No midline shift. No intracranial masses or hemorrhage. Crouch-white matter interface is norm al. There is moderate, diffuse cerebral volume loss. There are mild periventricular and subcortical w alexandre matter chronic microvascular ischemic changes. Atherosclerotic calcifications in the bilateral i nternal carotid arteries. Skull and face: Calvarium and visualized facial bones are intact, without suspicious lesions. Sinuses: Visualized sinuses and mastoids are clear. IMPRESSION: No acute intracranial pathology. Reviewed by: Elizabet Frazier MD, PhD on 12/17/2024 11:11 AM PDT Approved by: Elizabet Frazier MD, PhD on 12/17/2024 11:11 AM PDT Station ID: [id number]
--- NOTE | 2024-12-17 11:31 | CT Report ---
PROCEDURE: CT Abdomen/Pelvis W INDICATIONS: IV only, low abd pain CONTRAST: 100ml omni 300 TECHNIQUE: After the administration of intravenous contrast, a CT scan of the abdomen and pelvis was performed. Images were recorded and evaluated at appropriate window settings. Reformats: coronal and sagittal. F or radiation dose reduction, the following was used: automated exposure control, adjustment of mA and /or kV according to patient size. COMPARISON: CT abdomen pelvis 08/15/2024 FINDINGS: Image quality: Diagnostic. Lower chest: Emphysematous changes. Liver: No solid mass. Gallbladder: Unremarkable. Biliary tree: No intrahepatic or extrahepatic dilation, accounting for age. Spleen: No splenomegaly. Pancreas: No pancreatic ductal dilation. Adrenals: No adrenal nodule. Kidneys and ureters: No hydronephrosis. Low-attenuation foci bilaterally with the largest on the left consistent with a simple cyst. The right-sided focus is too small to definitively characterize. Stomach, bowel and peritoneum: There is significant colonic stool particularly in the rectal vault. T here is appearance of thickening of the terminal ileum and sacralization of the distal small bowel.. No pathologic free fluid. Hiatal hernia. Lymph nodes: No central or retroperitoneal adenopathy. Vessels: No infrarenal aortic aneurysm. Patent portal vein. PELVIS Reproductive organs: Unremarkable. Bladder: Bladder demonstrate a significantly thickened wall with mild enhancement. It is incompletely distended secondary to Marie catheter. Pelvic lymph nodes: No pelvic adenopathy by size criteria. Bones: No aggressive osseous abnormality. Partially visualized left hip arthroplasty. Other: No significant ventral or inguinal hernia. IMPRESSION: Significant colonic stool as above no gross obstruction. Significantly thickened bladder wall with areas of enhancement. While portions of thickening may be s econdary to incomplete distention, overall appearance raises suspicion for infection or inflammation recommend correlation to laboratory values. Reviewed by: Mera Hill MD on 12/17/2024 11:29 AM PDT Approved by: Mera Hill MD on 12/17/2024 11:29 AM PDT Station ID: [id number]
[2024-12-17] MEDS: cefTRIAXone 1 GM VIAL IVP STA (11:47)
--- NOTE | 2024-12-17 12:11 | HISTORY & PHYSICAL EXAMINATION ---
Chief Complaint Chief Complaint Chief Complaint: low BP/AMS History of Present Illness Admitted From Admitted From:: [facility] History Obtained From Records Reviewed: [facility] meds list, ED provider note, ED visit 08/15/24, 10/19/24 History obtained from: Patient and spouse History of Present Illness HPI Comment/Other: 84-year-old male who is currently at [facility] for rehab presents to the emergency department today for hypotension and altered mental status. He had a stroke several months ago and was transferred to [facility] at that time. He has sacral pressure ulcers as well as a right leg pressure ulcer for which she is being treated at wound care weekly. He has a history of atrial fibrillation on anticoagulation coronary artery disease and CHF. I do not know his ejection fraction. He has a chronic indwelling Marie due to chronic urinary retention. He presents to the emergency department today with altered level of consciousness and hypotension. No his blood pressure upon presentation to the emergency department is 78/56. He has been symptomatic with this is feeling a bit dizzy and tired. His states that yesterday they started to note some cloudiness of the urine. Urinalysis was sent from the [facility] and he was noted to have moderate blood positive nitrites moderate leukocyte esterase with greater than 25 white blood cells per high-powered field many bacteria. Culture shows Proteus species greater than 100,000 colony-forming units sensitivities are pending at this time. Upon presentation to the emergency department the patient's vital signs are as follows: Temp 36.6, pulse 66, respirations 18, O2 saturation 95% on room air, blood pressure 78/56. With resuscitation of 1-1/2 L IV normal saline in the emergency department his blood pressure did improve to the 1 teens over the 50s. Patient, prior to these acute illnesses over the last months was living at home with his . She is his medical decision-maker. Their high school sweetheart's have been together since that time. When questioned about CODE STATUS she very quickly pipes in that she wants him to be full code and full care, he abdicates that choice to her. Remote past medical history of severe traumatic injuries in the [place]. 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 ED visit 08/15/24: transfer to [facility] for STEMI vs NSTEMU ED visit 10/19/24:sepsis with UTI, NSTEMI, transfer to [facility] for ICU care. Meds/Allgy Home Medications Ambulatory Orders Medication Instructions Recorded Confirmed ascorbic acid (vitamin C) 1,000 mg 1,000 mg PO DAILY 10/05/20 12/17/24 tablet multivitamin 1 ea PO DAILY 10/05/20 12/17/24 atorvastatin 40 mg tablet (Lipitor) 40 mg PO QDAY #90 tabs 10/16/24 12/17/24 clopidogrel 75 mg tablet 75 mg PO QDAY #90 tabs 10/16/24 12/17/24 empagliflozin 10 mg tablet 10 mg PO QDAY #90 tabs 10/16/24 12/17/24 ezetimibe 10 mg tablet 10 mg PO QDAY #90 tabs 10/16/24 12/17/24 fluticasone propionate 50 1 spray intranasal DAILY #16 grams 10/16/24 12/17/24 mcg/actuation nasal spray,suspension gabapentin 300 mg capsule 300 mg PO BID #180 caps 10/16/24 12/17/24 lisinopril 5 mg tablet 5 mg PO QDAY #90 tabs 10/16/24 12/17/24 nitroglycerin 0.4 mg sublingual 0.4 mg sublingual Q5M PRN chest 10/16/24 12/17/24 tablet pain #20 tabs spironolactone 25 mg tablet 25 mg PO QDAY #90 tabs 10/16/24 12/17/24 tiotropium bromide 2.5 2 inh inhalation QAM #4 grams 10/16/24 12/17/24 mcg/actuation mist for inhalation (Spiriva Respimat) apixaban 5 mg tablet 5 mg PO BID 12/09/24 12/17/24 carvedilol 3.125 mg tablet 3.125 mg PO BID 12/09/24 12/17/24 oxycodone 5 mg tablet 2.5 mg PO Q4H PRN pain 12/09/24 12/17/24 acetaminophen 325 mg capsule 650 mg PO Q4H PRN fever or pain 12/17/24 12/17/24 guaifenesin 600 mg tablet, 600 mg PO BID PRN congestion 12/17/24 12/17/24 extended release 12 hr (Mucinex) lansoprazole 30 mg delayed 60 mg PO DAILY 12/17/24 12/17/24 release,disintegrating tablet Allergies Allergies Allergy/AdvReac Type Severity Reaction Status Date / Time No Known Drug Allergies Allergy Verified 12/17/24 09:51 PFS Active Problems All Active Problems (Updated 12/17/24 @ 11:43 by Aaron Valles MD) Constipation (Acute) Catheter-associated urinary tract infection (Acute) Sepsis (Acute) Non-pressure chronic ulcer of skin of other sites with fat layer exposed (Acute) Arterial insufficiency of lower extremity (Acute) Pressure injury of sacral region, stage 4 (Acute) Pressure injury of right calf, stage 4 (Acute) Closed head injury (Acute) Encephalopathy (Acute) Dehydration (Acute) Sepsis (Acute) Non-ST elevation VT (NSTEMI) (Acute) Urinary tract infection (Acute) Acute renal failure (Acute) Pericarditis (Acute) Allergic rhinitis (Acute) Hyperlipidemia (Acute) Hx of adenomatous colonic polyps (Acute) Atrial fibrillation (Acute) Hematuria (Acute) COPD (chronic obstructive pulmonary disease) (Chronic) Hypertension, essential, benign (Acute) CHF (congestive heart failure) (Acute) CAD (coronary artery disease) (Acute) Iron deficiency anemia, unspecified (Acute) Arthritis of carpometacarpal (CMC) joint of right thumb (Acute) Medical History Medical History (Updated 12/17/24 @ 11:43 by Aaron Valles MD) Diabetes Social History Social History Smoking Status: Former smoker If you are a former smoker, when did you quit? (Date/Year): 1989 Do you dip or chew tobacco?: No Do you vape?: No Patient requests smoking cessation consult: No Initiate information on smoking cessation: No Relationship: Spouse Level: Dependent Home Mobility Equipment: Walker and Wheeled walker Do you feel safe in your home environment?: Yes Suffered physical, verbal, emotional, or financial abuse?: No ETOH Use: None Substance Use: cannabis (any form) Substance Use Details: cannabis cookies for sleeping and cannabis hand cream for arthritis POLST Patient has POLST: Yes POLST Status: Full Code Review of Systems Status of ROS: 10 or more systems reviewed and unremarkable except as noted in history and below Constitutional Reports: Fatigue, Malaise and Weakness; Denies: Fever Ears, nose, mouth, and throat Denies: Change in hearing Cardiovascular Denies: Irregular heart rate, chest pain or shortness of breath with exertion Respiratory Denies: Shortness of breath or Cough Gastrointestinal Reports: Abdominal distention and Change in bowel habits (Frequent bowel movements) Genitourinary Reports: other (Chronic indwelling Marie catheter); Denies: Painful urination Integumentary/Breast Reports: Other (Chronic pressure ulcer sacrum and right lateral leg) Endocrine Reports: Fatigue Prior Level of Functionality: He has been bedbound for several months.Currently at [facility] for penitentiary rehab. Exam Exam Vital Signs: Vital Signs x48h Temp Pulse Resp BP Pulse Ox 12/17/24 21:00 36.7 C 80 18 94/51 L 93 12/17/24 16:05 37.1 C 85 16 91/48 L 92 Constitutional Appears chronically ill, he is thin with temporal wasting. HENMT normocephalic and hearing grossly normal bilaterally Eyes PERRL and no scleral icterus Neck/C-Spine visual inspection normal Lymph no lymphadenopathy noted Chest inspection of chest normal Respiratory breath sounds equal bilaterally and normal respiratory effort Cardiovascular normal heart rate noted Gastrointestinal abdomen normal to inspection and abdomen soft to palpation x lap incision noted Genitourinary no CVA tenderness Back/Pelvis spine normal to inspection mildine lumbar scar sacral decubitus ulceration. large. see descrition below Extremities atropic LLE, many surgical scars. LLE shorter than right (chronic). pressure ulceration at right lateral calf, 10cm x 4cm. some slough, minimal drainage. Neurology speech normal and GCS 15 Psychiatry mental status grossly normal, oriented x3 and affect normal Skin skin color normal Sepsis Event Note (H) Evaluation Current Stage of Sepsis: Septic shock Possible source of Sepsis: positive Genitourinary Sepsis Criteria Sepsis Criteria: WBC count greater than 12,000 or less than 4000, CORRESPONDENCE DICTATOR: altered consciousness (unrelated to primary neuro pathology) and MAP less than 65 mmHg Conclusion/Plan Problem List (1) Sepsis: Plan: Patient presents to the emergency department with altered mental status, leukocytosis of 14.8 and hypotension. This is likely related to his urinary tract infection. He has not been having a fever he has not been having any cough. He was treated with IV fluids in the emergency department and transferred to the floor. Will treat the source of his sepsis namely his catheter associated urinary tract infection. Discussed with Dr. Irizarry in the emergency department decision was made to admit this patient for his sepsis caused by catheter associated urinary tract infection. Qualifiers: Sepsis acute organ dysfunction status: with acute organ dysfunction S epsis type: sepsis due to unspecified organism Severe sepsis acute organ dysfunction type: encephalopathy Severe sepsis shock status: without septic shock Qualified Code(s): A41.9 - Sepsis, unspecified organism; R65.20 - Severe sepsis without septic shock; G93.41 - Metabolic encephalopathy (2) Catheter-associated urinary tract infection: Plan: Patient with pyuria and urinalysis which was sent from the [facility] cultures growing Proteus the sensitivities are pending at this time. He is being treated empirically with Rocephin for the time being. His Marie catheter was changed in the emergency department. Qualifiers: Encounter type: initial encounter Indwelling urinary catheter type: i ndwelling urethral catheter Qualified Code(s): T83.511A - Infection and inflammatory reaction due to indwelling urethral catheter, initial encounter; N39.0 - Urinary tract infection, site not specified (3) Pressure injury of sacral region, stage 4: Plan: Sacral pressure ulceration with exposure of muscle underlying. He has been seen by wound care once a week at [facility]. This afternoon I was able to place a wound VAC on the sacral pressure ulceration.There is less than 20% fibrinous slough. There is no foul-smelling drainage. He is having some fecal incontinence which is making it difficult to keep this area clean. We will change this on Wednesdays and Fridays while he is in-house. Additionally will seek approval for wound VAC at [facility] as I believe he would benefit greatly from this. The sacral pressure ulceration measures approximately 15 cm x 12 cm at its widest dimensions. (4) Pressure injury of right calf, stage 4: Plan: Right calf pressure ulceration full-thickness. I also placed a wound VAC to this. There is minimal drainage and it appears to be healing well. (5) Encephalopathy: Plan: Acute encephalopathy related to his sepsis and urinary tract infection. He has been lethargic with poor appetite. He is however intermittently oriented. I believe this will improve as his sepsis and urinary tract infection is treated. (6) Atrial fibrillation: Plan: Patient with a history of atrial fibrillation. He is not in rapid ventricular response. He is anticoagulated on Eliquis. We will continue this therapy. I have held his beta-blockers due to his hypotension. Plan I have spent 90 minutes in the care of this patient today. This includes time [id number], review and ordering of diagnostic imaging and laboratory studies and consultation with other providers. Monitoring the patient's signs symptoms, evaluation of medication effectiveness and patient's response to treatment. Lab Results 12/17/24 10:02 12/17/24 10:02
[2024-12-17] MEDS: SODIUM CHLORIDE 0.9% 500 ML IV ONE (12:14)
--- OUTSIDE RECORDS SUMMARY | 2024-12-17 12:17 | EXTERNAL MEDICAL SUMMARY RPT | Continuity of Care Document ---
Author Organization [facility] Address [address] [place] [address] [address] Phone Problems date description facility 2024-09-18 12:15 Chest pain, unspecified [facility] 2024-10-21 08:23 Other symptoms and signs involv ing the nervous system [facility] 2024-10-31 12:52 Dysphasia [facility] 2024-11-28 00:05 Paroxysmal atrial fibrillation [facility] 2024-11-28 09:39 Paroxysmal atrial fibrillation [facility] 2024-11-28 09:39 Other symptoms and signs involv ing the nervous system [facility] 2024-11-28 09:39 Retention of urine, unspecified [facility] 2024-12-11 00:05 Elevated erythrocyte sedimentat ion rate [facility] 2024-12-11 12:25 Elevated erythrocyte sedimentat ion rate [facility] 2024-12-11 12:25 Abnormality of albumin [facility] 2024-12-12 05:47 Peripheral vascular disease, un specified [facility] 2024-12-12 05:47 Pressure ulcer of other site, s [address] 2024-12-15 11:59 Peripheral vascular disease, un specified [facility] 2024-12-15 11:59 Pressure ulcer of other site, s [facility] 2024-12-15 12:02 Peripheral vascular disease, un specified [facility] 2024-12-15 12:02 Pressure ulcer of other site, s [facility] 2024-12-16 09:13 Peripheral vascular disease, un specified [facility] 2024-12-16 09:13 Pressure ulcer of sacral region , stage 4 [facility] 2024-12-16 09:13 Pressure ulcer of other site, s [facility] 4 [facility] 2024-12-16 09:13 Non-pressure chronic ulcer of skin of other sites with fat layer exposed [facility] 2024-12-16 22:03 Urinary tract infection, site n ot specified [facility] 2024-12-16 22:03 Benign prostatic hyp erplasia without lower urinary tract [facility] 2024-12-17 08:28 Urinary tract infection, site n ot specified [facility] 2024-12-17 08:28 Benign prostatic hyp erplasia without lower urinary tract symptoms [facility] 2024-12-17 08:30 Urinary tract infection, site n ot specified [facility] 2024-12-17 08:30 Benign prostatic hyp erplasia without lower urinary tract symptoms [facility] 2024-12-17 09:51 Peripheral vascular disease, un specified [facility] 2024-12-17 09:51 Pressure ulcer of other site, s [facility] 4 [facility] 2024-12-17 09:51 Urinary tract infection, site n ot specified [facility] 2024-12-17 09:51 Benign prostatic hyp erplasia without lower urinary tract symptoms [facility] Results/Labs test date facility value unit notes Result panel 1 CULTURE, BLOOD #1 2024-10-19 08:32 [facility] NG1D NO GROWTH AFTER 1 DAY (missing) (missing) CULTURE, BLOOD #1 2024-10-19 08:32 [facility] NG2D NO GROWTH AFTER 2 DAYS (missing) (missing) CULTURE, BLOOD #1 2024-10-19 08:32 [facility] NG5D NO GROWTH AFTER 5 DAYS (missing) (missing) Result panel 2 EOSINOPHILS # (AUTO) 2024-10-19 08:37 [facility] 0.0 10 3/ul (missing) NRBC ABSOLUTE COUNT (AUTO) 2024-10-19 08:37 [facility] 0.02 x10 3/ul (missing) BASOPHILS # (AUTO) 2024-10-19 08:37 [facility] 0.1 10 3/ul (missing) NUCLEATED RED BLOOD CELLS AUTO 2024-10-19 08:37 [facility] 0.2 /100wbc (missing) MONOCYTES # (AUTO) 2024-10-19 08:37 [facility] 0.5 10 3/ul (missing) LYMPHOCYTES # (AUTO) 2024-10-19 08:37 [facility] 0.5 10 3/ul (missing) BILIRUBIN,TOTAL 2024-10-19 08:37 [facility] 0.6 mg/dl As of March 2023 testing method has changed, this may include reference ranges. RBC MORPHOLOGY (MULTIPLE) 2024-10-19 08:37 [facility] 1+ POLYCHROMASIA (missing ) (missing) ALBUMIN/GLOBULIN RATIO 2024-10-19 08:37 [facility] 1.1 (missing ) (missing) GLUCOSE 2024-10-19 08:37 [facility] 109 mg/dl As of March 2023 testing method has changed, this may include reference ranges. WHITE BLOOD COUNT 2024-10-19 08:37 [facility] 11.6 x10 3/ul (missing) MEAN PLATELET VOLUME 2024-10-19 08:37 [facility] 11.7 fl (missing) HGB - HEMOGLOBIN 2024-10-19 08:37 [facility] 13.1 g/dl (missing) LIPASE 2024-10-19 08:37 [facility] 130 u/l As of March 2023 testing method has changed, this may include reference ranges. SODIUM 2024-10-19 08:37 [facility] 134 mmol/l As of March 2023 testing method has changed, this may include reference ranges. BUN - BLOOD UREA NITROGEN 2024-10-19 08:37 [facility] 136 mg/dl Critical result BUN 136 mg/dL called to and read back by MICHI Trotter RN/ED at 19-Oct-2024 09:22 by rodolfo. As of March 2023 testing method has changed, this may include reference ranges. CARBON DIOXIDE - CO2 2024-10-19 08:37 [facility] 14 mmol/l As of March 2023 testing method has changed, this may include reference ranges. RED CELL DISTRIBUTION WIDTH 2024-10-19 08:37 [facility] 15.4 % (missing) TROPONIN I HIGH SENSITIVITY 2024-10-19 08:37 [facility] 150.3 ng/l Critical result TNIHS 150.3 pg/mL called to and read back by MICHI Trotter RN/ED at 19-Oct-2024 09:20 by Arden. A HIGH SENSITIVITY TROPONIN result of >= 14.9 ng/L for females is considered POSITIVE. A HIGH SENSITIVITY TROPONIN result of >= 19.8 ng/L for males is considered POSITIVE. A HIGH SENSITIVITY TROPONIN result of >= 17.9 ng/L for unspecified is considered POSITIVE. PLT - PLATELET COUNT 2024-10-19 08:37 [facility] 196 10 3/ul (missing) ALT ALANINE AMINOTRANSFERASE 2024-10-19 08:37 [facility] 198 iu/l As of March 2023 testing method has changed, this may include reference ranges. AST ASPARTATE AMINOTRANSFERASE 2024-10-19 08:37 [facility] 199 iu/l As of March 2023 testing method has changed, this may include reference ranges. LACTIC ACID, VENOUS 2024-10-19 08:37 [facility] 2.9 mmol/l N As of March 2023 testing method has changed, this may include reference ranges. ALKALINE PHOSPHATASE 2024-10-19 08:37 [facility] 239 iu/l As of March 2023 testing method has changed, this may include reference ranges. ANION GAP 2024-10-19 08:37 [facility] 25.0 (missing ) (missing) GLOBULIN 2024-10-19 08:37 [facility] 3.3 g/dl (missing) ALBUMIN 2024-10-19 08:37 [facility] 3.6 g/dl As of March 2023 testing method has changed, this may include reference ranges. MEAN CORPUSCULAR HEMOGLOBIN 2024-10-19 08:37 [facility] 30.8 pg (missing) MEAN CORPUSCULAR HGB CONC 2024-10-19 08:37 [facility] 32.0 g/dl (missing) RED BLOOD COUNT 2024-10-19 08:37 [facility] 4.25 10 6/ul (missing) HCT - HEMATOCRIT 2024-10-19 08:37 [facility] 41.0 % (missing) TOTAL PROTEIN 2024-10-19 08:37 [facility] 6.9 g/dl As of March 2023 testing method has changed, this may include reference ranges. GFR - MDRD 2024-10-19 08:37 [facility] 7 (missing ) Social History date description facility
[2024-12-17] MEDS ORDERED: ONDANSETRON 4 MG/2 ML VIAL IVP PRN (12:34)
[2024-12-17] MEDS: DEXTROSE 5%-0.9% NACL 1,000 ML IV SCH (13:03)
[2024-12-17] MEDS: ACETAMINOPHEN 325 MG TABLET PO PRN (13:43)
--- NOTE | 2024-12-17 16:01 | PHARMACY PROGRESS NOTE ---
Best Possible Medication History Admit Date and Time: 12/17/24 1209 Home Medications Medication Instructions Recorded Confirmed Type ascorbic acid (vitamin C) 1,000 mg 1,000 mg PO DAILY 10/05/20 12/17/24 History tablet multivitamin 1 ea PO DAILY 10/05/20 12/17/24 History atorvastatin 40 mg tablet (Lipitor) 40 mg PO QDAY #90 tabs 10/16/24 12/17/24 Rx clopidogrel 75 mg tablet 75 mg PO QDAY #90 tabs 10/16/24 12/17/24 Rx empagliflozin 10 mg tablet 10 mg PO QDAY #90 tabs 10/16/24 12/17/24 Rx ezetimibe 10 mg tablet 10 mg PO QDAY #90 tabs 10/16/24 12/17/24 Rx fluticasone propionate 50 1 spray intranasal DAILY #16 grams 10/16/24 12/17/24 Rx mcg/actuation nasal spray,suspension gabapentin 300 mg capsule 300 mg PO BID #180 caps 10/16/24 12/17/24 Rx lisinopril 5 mg tablet 5 mg PO QDAY #90 tabs 10/16/24 12/17/24 Rx nitroglycerin 0.4 mg sublingual 0.4 mg sublingual Q5M PRN chest 10/16/24 12/17/24 Rx tablet pain #20 tabs spironolactone 25 mg tablet 25 mg PO QDAY #90 tabs 10/16/24 12/17/24 Rx tiotropium bromide 2.5 2 inh inhalation QAM #4 grams 10/16/24 12/17/24 Rx mcg/actuation mist for inhalation (Spiriva Respimat) apixaban 5 mg tablet 5 mg PO BID 12/09/24 12/17/24 History carvedilol 3.125 mg tablet 3.125 mg PO BID 12/09/24 12/17/24 History oxycodone 5 mg tablet 2.5 mg PO Q4H PRN pain 12/09/24 12/17/24 History acetaminophen 325 mg capsule 650 mg PO Q4H PRN fever or pain 12/17/24 12/17/24 History guaifenesin 600 mg tablet, 600 mg PO BID PRN congestion 12/17/24 12/17/24 History extended release 12 hr (Mucinex) lansoprazole 30 mg delayed 60 mg PO DAILY 12/17/24 12/17/24 History release,disintegrating tablet Processed by: Pharmacy Medications reviewed in ED?: No Medication History completed: Yes Patient Interview: Pt unable to participate Secondary Source(s): Written medication list, Insurance records and Facility MAR as ONLY source [facility] Statement: Per Transfer/ Discharge report from [facility] with follow-up call to [facility] for clarification and [employer] insurance records review. As the person ultimately responsible for medication therapy, providers are able to order a medication from an existing home medication list in [employer] via the "Reconcile Routine" prior to Confirmation of that medication by desktop support consultant. Such practice is discouraged except when the physician, in their clinical judgment, deems that a medical need exists for a medication without regard to previous use.
[2024-12-17] MEDS: oxyCODONE 5 MG TABLET PO PRN (18:41)
[2024-12-17] MEDS: SODIUM CHLORIDE FLUSH 0.9% 10 ML SYRINGE IVP SCH (18:42)
[2024-12-17] MEDS: VANCOMYCIN 125 MG CAPSULE PO SCH (21:22)
[2024-12-17] MEDS: HYDROmorphone 0.5 MG/0.5 ML SYRINGE IVP PRN (21:23)
[2024-12-17] MEDS: SODIUM CHLORIDE FLUSH 0.9% 10 ML SYRINGE IVP PRN (21:23)
[2024-12-17] MEDS ORDERED: ACETAMINOPHEN 325 MG TABLET PO PRN (22:20)
[2024-12-17] MEDS: CLOPIDOGREL 75 MG TABLET PO SCH (23:53)
[2024-12-18] MEDS: COD LIVER OIL/ZINC OXIDE 113 GM TUBE TOP PRN (01:29)
[2024-12-18 04:41] LABS: BILIRUBIN,URINE NEGATIVE (NEGATIVE); GLUCOSE, URINE (UA) 500 mg/dL (NEGATIVE); KETONES,URINE (UA) NEGATIVE (NEGATIVE); LEUKOCYTE ESTERASE, URINE SMALL (NEGATIVE); NITRITE,URINE POSITIVE (NEGATIVE); OCCULT BLOOD,URINE NEGATIVE (NEGATIVE); PROTEIN,URINE TRACE mg/dL (NEGATIVE); UROBILINOGEN,URINE 0.2 (NORMAL) E.U./dL (NORMAL)
[2024-12-18 04:52] LABS: CLARITY,URINE HAZY (CLEAR)
[2024-12-18 04:57] LABS: BACTERIA,URINE Few /HPF (None Seen); RBC,URINE 0-5 /HPF (0-5); SQUAMOUS EPITHELIAL CELL,UR RARE Squamous (<= Few)
[2024-12-18] MEDS: PATIENT OWN MED (JARDIANCE 10MG) PO SCH (08:11)
[2024-12-18] MEDS: EZETIMIBE 10 MG PO SCH (08:11)
[2024-12-18] MEDS: cefTRIAXone 1 GM VIAL IVP SCH (08:19)
[2024-12-18] MEDS: ATORVASTATIN 40 MG TABLET PO SCH (08:20)
[2024-12-18] MEDS: GABAPENTIN 300 MG CAPSULE PO SCH (08:20)
[2024-12-18] MEDS: APIXABAN 5 MG TABLET PO SCH (08:20)
[2024-12-18] MEDS: SPIRONOLACTONE 25 MG TABLET PO SCH (08:20)
[2024-12-18] MEDS: MULTIVITAMIN W/MINERALS TABLET PO SCH (08:58)
--- NOTE | 2024-12-18 13:13 | WOUND CARE PROGRESS NOTE ---
Conclusion and Plan Problem List (1) Sepsis: Qualifiers: Sepsis acute organ dysfunction status: with acute organ dysfunction Sepsis type: sepsis due to unspecified organism Severe sepsis acute organ dysfunction type: encephalopathy Severe sepsis shock status: without septic shock Qualified Code(s): A41.9 - Sepsis, unspecified organism; R65.20 - Severe sepsis without septic shock; G93.41 - Metabolic encephalopathy (2) Catheter-associated urinary tract infection: Qualifiers: Encounter type: initial encounter Indwelling urinary catheter type: indwelling urethral catheter Qualified Code(s): T83.511A - Infection and inflammatory reaction due to indwelling urethral catheter, initial encounter; N39.0 - Urinary tract infection, site not specified (3) Pressure injury of sacral region, stage 4: Assessment/Plan: Discussed with Dr. Urbina, agree with utilization of wound vac. (4) Pressure injury of right calf, stage 4: Assessment/Plan: Discussed with Dr. Urbina, agree with utilization of wound vac. (5) Encephalopathy: (6) Atrial fibrillation: Plan Plan: Pt known to me from out pt wound clinic. Pt actually had appt scheduled on the day of his ER admission. Did not evaluate the pt's sacral or R lateral calf ulcers today since vac therapy was just initiated yesterday by Dr. Urbina. I am in complete agreement with utilization of wound vac therapy for both of these ulcers. Negative pressure wound therapy (NPWT) promotes more rapid formation of neovascular tissue providing increased delivery of oxygen and nutrients to the site which in turns improves the rate of healing. The negative pressure also stimulates more rapid formation of healthy granulation tissue with potential of healing the wound in 1/3 of the time using gauze dressings. Agree with plan to continue wound vac therapy at [facility]. The sacral wound is the most critical and would benefit the most from the treatment. The R lateral calf ulcer would benefit but with decreased size and depth of involved tissue, it could be transitioned to other advanced wound care therapies. Chest tube site to the R lateral distal chest appears covered with neoepithelial tissue. Was open at pt's first visit to the wound clinic. Will continue to protect the site by using small amt of moisturizer to the most recently healed area, and protecting with a silicone bordered foam. Discussed pt's care with Dr. Urbina who will begin the process of ordering continued wound vac therapy for the sacral ulcer at [facility]. Discussed plan of care and physiology of how the wound vac assists with wound healing with the pt and his spouse. Both verbalized understanding and were very happy Dr. Urbina had initiated this treatment. Pt does have an appt for the upcoming Weds in the clinic. We will be happy to continue providing out pt wound care for Mr. Best. Pt has scattered areas of eschar to his toes; will have nursing staff pain with betadine daily to maintain stable eschar. Spent 20 mins with the pt, with an additional 10 mins charting. Results Lab Results: Laboratory Results Sodium 129 mmol/L (135-145) L 12/17/24 10:02 Potassium 4.0 mmol/L (3.5-4.5) 12/17/24 10:02 Chloride 97 mmol/L (101-111) L 12/17/24 10:02 Carbon Dioxide 25 mmol/L (21-32) 12/17/24 10:02 Anion Gap 7.0 (6-13) 12/17/24 10:02 BUN 31 mg/dL (6-20) H 12/17/24 10:02 Creatinine 0.8 mg/dL (0.6-1.3) 12/17/24 10:02 Glucose 133 mg/dL (74-104) H 12/17/24 10:02 Calcium 8.5 mg/dL (8.5-10.3) 12/17/24 10:02 Total Bilirubin 0.6 mg/dL (0.2-1.0) 12/17/24 10:02 AST 15 IU/L (10-42) 12/17/24 10:02 ALT 13 IU/L (10-60) 12/17/24 10:02 Alkaline Phosphatase 112 IU/L (42-121) 12/17/24 10:02 Total Protein 5.4 g/dL (6.4-8.9) L 12/17/24 10:02 Albumin 2.9 g/dL (3.2-5.5) L 12/17/24 10:02 Globulin 2.5 g/dL (2.1-4.2) 12/17/24 10:02 Albumin/Globulin Ratio 1.2 (1.0-2.2) 12/17/24 10:02 12/17/24 10:13 Blood - Right Arm Blood Culture - Preliminary NO GROWTH AFTER 1 DAY 12/17/24 10:02 Blood - Right Iv-Start Blood Culture - Preliminary NO GROWTH AFTER 1 DAY 12/18/24 04:35 Urine,Clean Catch Urine Culture - Preliminary CULTURE IN PROGRESS. RESULTS TO FOLLOW. Exam Exam Vital Signs: Vital Signs x48h Temp Pulse Resp BP Pulse Ox O2 Flow Rate 12/18/24 08:09 36.6 C 81 16 124/52 L 100 0 Physician Wound Note Wound Note (Multiple) #1 R lat calf: Wound Type: Pressure injury Classification: Partial thickness Pre Measurements Pre Wound Surface Area: 0 cm sq Wound Description Wound Comment(s): wound vac in place Pain Pain Level: 3 #2 sacrum: Wound Type: Pressure injury Classification: Full thickness Pre Measurements Pre Wound Surface Area: 0 cm sq Wound Description Wound Comment(s): wound vac in place Pain Pain Level: 3 #3 R rib old chest tube: Pre Measurements Pre Wound Surface Area: 0 cm sq Wound Description Pain Pain Level: 3 #4 L foot toes: Classification: Partial thickness Pre Measurements Pre Wound Surface Area: 0 cm sq Wound Description Pain Pain Level: 3 #5 Right Great toe: Classification: Full thickness Pre Measurements Pre Wound Surface Area: 0 cm sq Wound Description Pain Pain Level: 3
--- NOTE | 2024-12-18 14:53 | PROVIDER PROGRESS NOTE ---
Subjective Prog Note Date Prog Note Date: 12/18/24 Subjective Subjective: He is feeling better today. pain is well managed. He has been seen by wound care team today. Current Medications Current Medications Current Medications: Current Medications Generic Name Dose Route Start Last Admin Trade Name Freq PRN Reason Stop Dose Admin Acetaminophen 650 mg 12/17/24 22:20 Acetaminophen 325 Mg Tablet PO Q4H PRN fever or pain Apixaban 5 mg 12/18/24 09:00 12/18/24 08:20 Apixaban 5 Mg Tablet PO 5 mg BID HALLE Administration Atorvastatin Calcium 40 mg 12/18/24 09:00 12/18/24 08:20 Atorvastatin 40 Mg Tablet PO 40 mg DAILY HALLE Administration Ceftriaxone Sodium 1 gm 12/18/24 09:00 12/18/24 08:19 Ceftriaxone 1 Gm Vial IVP 12/22/24 09:01 1 gm DAILY HALLE Administration Clopidogrel Bisulfate 75 mg 12/17/24 23:00 12/18/24 08:20 Clopidogrel 75 Mg Tablet PO 75 mg DAILY HALLE Administration Gabapentin 300 mg 12/18/24 09:00 12/18/24 08:20 Gabapentin 300 Mg Capsule PO 300 mg BID HALLE Administration Hydromorphone HCl 0.5 mg 12/17/24 19:20 12/18/24 12:23 Hydromorphone 0.5 Mg/0.5 Ml Syringe IVP 0.5 mg Q2H PRN Administration Severe Pain (Level 7-10) Dextrose/Sodium Chloride 1,000 mls @ 100 mls/hr 12/17/24 13:00 12/18/24 08:53 D5ns IV 100 mls/hr .Q10H HALLE Administration Ipratropium Ingraham 0.5 mg 12/18/24 01:00 Ipratropium 0.2 Mg/Ml Neb INH RTQ6H HALLE Multivitamins/Minerals 1 tab 12/18/24 09:00 12/18/24 08:58 Multivitamin W/Minerals Tablet PO 1 tab DAILYWM HALLE Administration Ondansetron HCl 4 mg 12/17/24 12:34 Ondansetron 4 Mg/2 Ml Vial IVP Q6HR PRN Nausea / Vomiting Oxycodone HCl 5 mg 12/17/24 17:32 12/18/24 09:54 Oxycodone 5 Mg Tablet PO 5 mg Q4HR PRN Administration Moderate Pain (Level 4-6) Patient Own Med ( 1 each 12/18/24 09:00 12/18/24 08:11 Jardiance 10mg) PO Not Given DAILY HALLE Patient Own Med ( 1 each 12/18/24 09:00 12/18/24 08:11 Ezetimibe 10 Mg PO Not Given Tablet) DAILY HALLE Sodium Chloride 10 ml 12/17/24 12:34 12/17/24 21:23 Sodium Chloride Flush 0.9% 10 Ml Syringe IVP 10 ml PRN PRN Administration NEEDED PER PROVIDER ORDERS Sodium Chloride 10 ml 12/17/24 17:00 12/18/24 08:20 Sodium Chloride Flush 0.9% 10 Ml Syringe IVP 10 ml 0100,0900,1700 HALLE Administration Spironolactone 25 mg 12/18/24 09:00 12/18/24 08:20 Spironolactone 25 Mg Tablet PO 25 mg DAILY HALLE Administration Vancomycin HCl 125 mg 12/17/24 21:00 12/18/24 12:23 Vancomycin 125 Mg Capsule PO 125 mg QID HALLE Administration Zinc Oxide 113 gm 12/18/24 00:29 12/18/24 01:29 Cod Liver Oil/Zinc Oxide 113 Gm Tube TOP 1 applic PRN PRN Administration Skin Care Objective Vital Signs/Intake & Output Reviewed Vital Signs: Yes Vital Signs: Vital Signs x48h Temp Pulse Resp BP Pulse Ox O2 Flow Rate 12/18/24 14:00 36.7 C 74 16 103/50 L 100 12/18/24 08:09 36.6 C 81 16 124/52 L 100 0 Intake & Output: Intake & Output 12/15/24 12/16/24 12/17/24 12/18/24 23:59 23:59 23:59 23:59 Intake Total 2600 / 2600 1640 / 1640 Output Total 400 / 400 1250 / 1250 Balance 2200 / 2200 390 / 390 Weight (kg) 56 kg Objective General Appearance: positive No acute distress and Alert Eyes Bilateral: positive Normal inspection ENT: positive ENT inspection nml Neck: positive Nml inspection Respiratory: positive Chest non-tender, No respiratory distress and Breath sounds nml Cardiovascular: positive Regular rate & rhythm Abdomen: positive Non-tender Back: positive Nml inspection Skin: positive Color nml and Other (wound vacs are in place and functioning well without any signifcant drainage. ) Extremities: positive Non-tender and No pedal edema Neurologic/Psychiatric: positive Oriented x3 Lab Results 12/18/24 15:06 12/18/24 15:06 Other Labs: Lab Results x24hrs 12/18/24 12/17/24 Range/Units 04:35 18:07 Urine Color YELLOW Urine Clarity HAZY (CLEAR) Urine pH 7.0 (5.0-7.5) PH Ur Specific Momence 1.010 (1.002-1.030) Urine Protein TRACE (NEGATIVE) mg/dL Urine Glucose (UA) 500 H (NEGATIVE) mg/dL Urine Ketones NEGATIVE (NEGATIVE) mg/dL Urine Occult Blood NEGATIVE (NEGATIVE) Urine Nitrite POSITIVE H (NEGATIVE) Urine Bilirubin NEGATIVE (NEGATIVE) Urine Urobilinogen 0.2 (NORMAL) (NORMAL) E.U./dL Ur Leukocyte Esterase SMALL H (NEGATIVE) Urine RBC 0-5 (0-5) /HPF Urine WBC 11-25 H (0-3) /HPF Ur Squamous Epith Cells RARE Squamous (<= Few) Urine Bacteria Few (None Seen) /HPF Ur Microscopic Review INDICATED Urine Culture Comments INDICATED Stl C. diff Tox B Gene POSITIVE A* (NEGATIVE) Sepsis Event Note (H) Evaluation Current Stage of Sepsis: Resolved Possible source of Sepsis: positive Genitourinary Assessment/Plan Problem List (1) Sepsis: Impression: Patient presents to the emergency department with altered mental status, leukocytosis of 14.8 and hypotension. This is likely related to his urinary tract infection. He has not been having a fever he has not been having any cough. He was treated with IV fluids in the emergency department and transferred to the floor. Will treat the source of his sepsis namely his catheter associated urinary tract infection. on HD #1, he is improving. his mental status is greatly improved and his skin color is much less sallow. his blood pressures are improved to SBP >100 WBC has normalized. his sepsis criteria has resolved. Qualifiers: Sepsis acute organ dysfunction status: with acute organ dysfunction S epsis type: sepsis due to unspecified organism Severe sepsis acute organ dysfunction type: encephalopathy Severe sepsis shock status: without septic shock Qualified Code(s): A41.9 - Sepsis, unspecified organism; R65.20 - Severe sepsis without septic shock; G93.41 - Metabolic encephalopathy (2) Catheter-associated urinary tract infection: Impression: davidson sensitive proteus. Rocephin 1gm daily is appropriate treatment. This is a chronic indwelling crowder that was placed in the ED. When I discussed the indication for the crowder with spouse at admit, she stated it was there for his wounds and incontinence, may need to revisit this idea with her and consider dc crowder. Qualifiers: Encounter type: initial encounter Indwelling urinary catheter type: i ndwelling urethral catheter Qualified Code(s): T83.511A - Infection and inflammatory reaction due to indwelling urethral catheter, initial encounter; N39.0 - Urinary tract infection, site not specified (3) Protein-calorie malnutrition, severe: Impression: He has had a very significant weight loss in the last year. ab 20kg in the last 5 months. has decub ulcers. this makes it very difficult to heal ulcerations. digital strategy manager has consulted and is making recommendations for protein and vitamin intake. (4) C. difficile colitis: Impression: ongoing diarrhea for about a month, has been difficult to manage. started on PO vanc and already has not had a stool since last evening. feels better and more comfortable. (5) Pressure injury of sacral region, stage 4: Impression: Vac in place, discussed with wound care today. need to get vac approval for SNF. minimal drainage. (6) Pressure injury of right calf, stage 4: Impression: he has multiple small ulcerations at his toes. he is being actively managed by wound care, discussed w NAIMA Angeles at wound care today. she had planned vascular studies as OP- I have ordered these as IP. she has made recommendations for the ulceration's care. (7) Encephalopathy: Impression: secondary to sepsis, resolved. (8) Atrial fibrillation: Impression: anti coagulation continued. I will restart his beta blockers as his BP has normalized, HR remains <100. I have spent 55 minutes in the care of this patient today. This includes time [id number], review and ordering of diagnostic imaging and laboratory studies and consultation with other providers, specifically wound care CRAPS MANAGER. Monitoring the patient's signs symptoms, evaluation of medication effectiveness and patient's response to treatment.
[2024-12-18 15:13] LABS: BASOPHILS % (AUTO) 0.4 %; EOSINOPHILS # (AUTO) 0.2 10^3/uL (0.0-0.7); EOSINOPHILS % (AUTO) 2.3 %; HCT - HEMATOCRIT 26.9 % (42.0-52.0); HGB - HEMOGLOBIN 8.2 g/dL (14.0-18.0); LYMPHOCYTES # (AUTO) 0.7 10^3/uL (1.5-3.5); LYMPHOCYTES % (AUTO) 8.2 %; MEAN CORPUSCULAR HGB CONC 30.5 g/dL (32.0-36.0); MEAN CORPUSCULAR VOLUME 95.1 fL (80.0-94.0); MEAN PLATELET VOLUME 8.1 fL (7.4-11.4); MONOCYTES # (AUTO) 0.9 10^3/uL (0.0-1.0); MONOCYTES % (AUTO) 10.7 %; NEUTROPHILS # (AUTO) 6.4 10^3/uL (1.5-6.6); NEUTROPHILS % (AUTO) 77.9 %; PLT - PLATELET COUNT 298 10^3/uL (130-450); RED BLOOD COUNT 2.83 10^6/uL (4.70-6.10); RED CELL DISTRIBUTION WIDTH 17.4 % (12.0-15.0); WHITE BLOOD COUNT 8.2 x10^3/uL (4.8-10.8)
[2024-12-18 16:15] LABS: CALCIUM 7.5 mg/dL (8.5-10.3); CREATININE 0.4 mg/dL (0.6-1.3)
[2024-12-19] MEDS: IPRATROPIUM 0.2 MG/ML NEB INH SCH (00:11)
--- NOTE | 2024-12-19 01:38 | Ultrasound Report ---
PROCEDURE: US Arterial Duplex Lwr Ext BL INDICATIONS: lower extremity wounds TECHNIQUE: Color and pulse Doppler interrogation was performed of both lower extremity arterial systems, with im age documentation. COMPARISON: None FINDINGS: Right lower extremity: Common femoral artery: 90 cm/sec, with triphasic flow. Deep femoral artery: 147 cm/sec, with monophasic flow. Proximal superficial femoral artery: 123 cm/sec, with biphasic flow. Mid superficial femoral artery: 85 cm/sec, with triphasic flow. Distal superficial femoral artery: 168 cm/sec, with biphasic flow. Popliteal artery: 53 cm/sec, with triphasic flow. Posterior tibial artery: 113 cm/sec, with monophasic flow. Anterior tibial artery/dorsalis pedis: 132 cm/sec, with monophasic flow. Crouch-scale imaging description: Scattered calcified plaque, particularly at the profunda femoral art chloe origin. Plaque in the distal SFA causing mild subjective luminal stenosis. Left lower extremity: Common femoral artery: 223 cm/sec, with biphasic flow. Deep femoral artery: 163 cm/sec, with monophasic flow. Proximal superficial femoral artery: 95 cm/sec, with biphasic flow. Mid superficial femoral artery: 107 cm/sec, with biphasic flow. Distal superficial femoral artery: 63 cm/sec, with biphasic flow. Popliteal artery: 76 cm/sec, with biphasic flow. Posterior tibial artery: 100 cm/sec, with monophasic flow. Anterior tibial artery/dorsalis pedis: 67 cm/sec, with monophasic flow. Crouch-scale imaging description: Mild common femoral arterial plaque and plaque at the profunda femor al origin. Moderate plaque in the proximal femoral artery and popliteal arteries. IMPRESSION: Bilateral lower extremity plaque without hemodynamically significant stenosis. There is likely inflow disease in the left indicated by elevated common femoral artery velocity. There is likely peripheral plaque in the right lower leg elevating posterior tibial and anterior tibi al artery velocities. Subjective stenosis at the distal right femoral artery. This is in combination with possible calf art erial stenoses, may result in tandem stenoses to the right foot. Reviewed by: Rebekah Rice MD on 12/19/2024 1:37 AM PDT Approved by: Rebekah Rice MD on 12/19/2024 1:37 AM PDT Station ID: [id number]
[2024-12-19 08:22] LABS: BASOPHILS % (AUTO) 0.7 %; EOSINOPHILS # (AUTO) 0.1 10^3/uL (0.0-0.7); EOSINOPHILS % (AUTO) 2.2 %; HCT - HEMATOCRIT 29.7 % (42.0-52.0); HGB - HEMOGLOBIN 9.2 g/dL (14.0-18.0); LYMPHOCYTES # (AUTO) 0.4 10^3/uL (1.5-3.5); LYMPHOCYTES % (AUTO) 6.2 %; MEAN CORPUSCULAR VOLUME 93.7 fL (80.0-94.0); MEAN PLATELET VOLUME 7.8 fL (7.4-11.4); MONOCYTES # (AUTO) 0.6 10^3/uL (0.0-1.0); MONOCYTES % (AUTO) 9.6 %; NEUTROPHILS # (AUTO) 4.8 10^3/uL (1.5-6.6); NEUTROPHILS % (AUTO) 80.8 %; PLT - PLATELET COUNT 285 10^3/uL (130-450); RED BLOOD COUNT 3.17 10^6/uL (4.70-6.10); RED CELL DISTRIBUTION WIDTH 17.1 % (12.0-15.0); WHITE BLOOD COUNT 5.9 x10^3/uL (4.8-10.8)
[2024-12-19 08:33] LABS: CALCIUM 7.6 mg/dL (8.5-10.3); CREATININE 0.3 mg/dL (0.6-1.3); POTASSIUM 3.4 mmol/L (3.5-4.5)
[2024-12-19] MEDS: carvediloL 3.125 MG TABLET PO SCH (08:42)
--- NOTE | 2024-12-19 12:50 | PROVIDER PROGRESS NOTE ---
Subjective Prog Note Date Prog Note Date: 12/19/24 Subjective Pt reports feeling: Improved Subjective: He is doing well. discussion today about Jardiance, he would like to stop. Also, we will try voiding trial today Current Medications Current Medications Current Medications: Current Medications Generic Name Dose Route Start Last Admin Trade Name Freq PRN Reason Stop Dose Admin Acetaminophen 650 mg 12/17/24 22:20 Acetaminophen 325 Mg Tablet PO Q4H PRN fever or pain Apixaban 5 mg 12/18/24 09:00 12/19/24 08:43 Apixaban 5 Mg Tablet PO 5 mg BID HALLE Administration Atorvastatin Calcium 40 mg 12/18/24 09:00 12/19/24 08:42 Atorvastatin 40 Mg Tablet PO 40 mg DAILY HALLE Administration Carvedilol 3.125 mg 12/19/24 09:00 12/19/24 08:42 Carvedilol 3.125 Mg Tablet PO 3.125 mg BID HALLE Administration Ceftriaxone Sodium 1 gm 12/18/24 09:00 12/19/24 08:42 Ceftriaxone 1 Gm Vial IVP 12/22/24 09:01 1 gm DAILY HALLE Administration Clopidogrel Bisulfate 75 mg 12/17/24 23:00 12/19/24 08:42 Clopidogrel 75 Mg Tablet PO 75 mg DAILY HALLE Administration Gabapentin 300 mg 12/18/24 09:00 12/19/24 08:43 Gabapentin 300 Mg Capsule PO 300 mg BID HALLE Administration Hydromorphone HCl 0.5 mg 12/17/24 19:20 12/19/24 08:03 Hydromorphone 0.5 Mg/0.5 Ml Syringe IVP 0.5 mg Q2H PRN Administration Severe Pain (Level 7-10) Dextrose/Sodium Chloride 1,000 mls @ 100 mls/hr 12/17/24 13:00 12/19/24 08:03 D5ns IV 100 mls/hr .Q10H HALLE Administration Ipratropium [place] 0.5 mg 12/18/24 01:00 12/19/24 11:59 Ipratropium 0.2 Mg/Ml Neb INH Not Given RTQ6H HALLE Multivitamins/Minerals 1 tab 12/18/24 09:00 12/19/24 08:42 Multivitamin W/Minerals Tablet PO 1 tab DAILYWM HALLE Administration Ondansetron HCl 4 mg 12/17/24 12:34 Ondansetron 4 Mg/2 Ml Vial IVP Q6HR PRN Nausea / Vomiting Oxycodone HCl 5 mg 12/17/24 17:32 12/18/24 20:55 Oxycodone 5 Mg Tablet PO 5 mg Q4HR PRN Administration Moderate Pain (Level 4-6) Patient Own Med ( 1 each 12/18/24 09:00 12/19/24 08:44 Jardiance 10mg) PO Not Given DAILY [facility] Patient Own Med ( 1 each 12/18/24 09:00 12/19/24 08:44 Ezetimibe 10 Mg PO Not Given Tablet) DAILY [facility] Sodium Chloride 10 ml 12/17/24 12:34 12/17/24 21:23 Sodium Chloride Flush 0.9% 10 Ml Syringe IVP 10 ml PRN PRN Administration NEEDED PER PROVIDER ORDERS Sodium Chloride 10 ml 12/17/24 17:00 12/19/24 08:44 Sodium Chloride Flush 0.9% 10 Ml Syringe IVP 10 ml 0100,0900,1700 HALLE Administration Spironolactone 25 mg 12/18/24 09:00 12/19/24 08:42 Spironolactone 25 Mg Tablet PO 25 mg DAILY HALLE Administration Vancomycin HCl 125 mg 12/17/24 21:00 12/19/24 12:35 Vancomycin 125 Mg Capsule PO 125 mg QID HALLE Administration Zinc Oxide 113 gm 12/18/24 00:29 12/19/24 08:43 Cod Liver Oil/Zinc Oxide 113 Gm Tube TOP 1 applic PRN PRN Administration Skin Care Objective Vital Signs/Intake & Output Reviewed Vital Signs: Yes Vital Signs: Vital Signs x48h Temp Pulse Pulse Resp BP Pulse Ox 12/19/24 08:26 37.0 C 79 20 121/60 98 12/19/24 07:55 78 20 Intake & Output: Intake & Output 12/16/24 12/17/24 12/18/24 12/19/24 23:59 23:59 23:59 23:59 Intake Total 2600 / 2600 3390 / 3390 1580 / 1580 Output Total 400 / 400 1650 / 1650 925 / 925 Balance 2200 / 2200 1740 / 1740 655 / 655 Weight (kg) 56 kg Objective General Appearance: positive No acute distress and Alert Eyes Bilateral: positive Normal inspection ENT: positive ENT inspection nml Neck: positive Nml inspection Respiratory: positive Chest non-tender, No respiratory distress and Breath sounds nml Cardiovascular: positive Regular rate & rhythm Abdomen: positive Non-tender Back: positive Nml inspection Skin: positive Color nml and Other (wound vacs are in place and functioning well without any signifcant drainage. ) Extremities: positive Non-tender and No pedal edema Neurologic/Psychiatric: positive Oriented x3 Lab Results 12/19/24 08:15 12/19/24 08:15 Other Labs: Lab Results x24hrs 12/19/24 12/18/24 Range/Units 08:15 15:06 WBC 5.9 8.2 (4.8-10.8) x10^3/uL RBC 3.17 L 2.83 L (4.70-6.10) 10^6/uL Hgb 9.2 L 8.2 L (14.0-18.0) g/dL Hct 29.7 L 26.9 L (42.0-52.0) % MCV 93.7 95.1 H (80.0-94.0) fL MCH 29.0 29.0 (27.0-31.0) pg MCHC 31.0 L 30.5 L (32.0-36.0) g/dL RDW 17.1 H 17.4 H (12.0-15.0) % Plt Count 285 298 (130-450) 10^3/uL MPV 7.8 8.1 (7.4-11.4) fL Neut # (Auto) 4.8 6.4 (1.5-6.6) 10^3/uL Lymph # (Auto) 0.4 L 0.7 L (1.5-3.5) 10^3/uL [place] # (Auto) 0.6 0.9 (0.0-1.0) 10^3/uL Eos # (Auto) 0.1 0.2 (0.0-0.7) 10^3/uL Baso # (Auto) 0.0 0.0 (0.0-0.1) 10^3/uL Absolute Nucleated RBC 0.00 0.00 x10^3/uL Nucleated RBC % 0.0 0.0 /100WBC Sodium 131 L 131 L (135-145) mmol/L Potassium 3.4 L 4.0 (3.5-4.5) mmol/L Chloride 103 103 (101-111) mmol/L Carbon Dioxide 24 24 (21-32) mmol/L Anion Gap 4.0 L 4.0 L (6-13) BUN 12 21 H (6-20) mg/dL Creatinine 0.3 L 0.4 L (0.6-1.3) mg/dL Estimated GFR (MDRD) 287 206 (>89) Glucose 91 107 H (74-104) mg/dL Calcium 7.6 L 7.5 L (8.5-10.3) mg/dL Sepsis Event Note (H) Evaluation Current Stage of Sepsis: Resolved Possible source of Sepsis: positive Genitourinary Sepsis Criteria Sepsis Criteria: WBC count greater than 12,000 or less than 4000, PARTS CONSULTANT: altered consciousness (unrelated to primary neuro pathology) and MAP less than 65 mmHg Assessment/Plan Problem List (1) Sepsis: Impression: Patient presents to the emergency department with altered mental status, leukocytosis of 14.8 and hypotension. This is likely related to his urinary tract infection. He has not been having a fever he has not been having any cough. He was treated with IV fluids in the emergency department and transferred to the floor. Will treat the source of his sepsis namely his catheter associated urinary tract infection. His sepsis is resolved . Qualifiers: Sepsis acute organ dysfunction status: with acute organ dysfunction S epsis type: sepsis due to unspecified organism Severe sepsis acute organ dysfunction type: encephalopathy Severe sepsis shock status: without septic shock Qualified Code(s): A41.9 - Sepsis, unspecified organism; R65.20 - Severe sepsis without septic shock; G93.41 - Metabolic encephalopathy (2) Catheter-associated urinary tract infection: Impression: davidson sensitive proteus. Rocephin 1gm daily is appropriate treatment. This is a chronic indwelling crowder that was placed in the ED. When I discussed the indication for the crowder with spouse at admit, she stated it was there for his wounds and incontinence, further discussed today and decison was made with the patient and the spouse to do a void trial. Qualifiers: Encounter type: initial encounter Indwelling urinary catheter type: i ndwelling urethral catheter Qualified Code(s): T83.511A - Infection and inflammatory reaction due to indwelling urethral catheter, initial encounter; N39.0 - Urinary tract infection, site not specified (3) Protein-calorie malnutrition, severe: Impression: He has had a very significant weight loss in the last year. ab 20kg in the last 5 months. has decub ulcers. this makes it very difficult to heal ulcerations. school bus attendant has consulted and is making recommendations for protein and vitamin intake. he is being actively seen by dietary services. (4) C. difficile colitis: Impression: ongoing diarrhea for about a month, has been difficult to manage. started on PO vanc stools have abated. We will continue this for 10 days. (5) Pressure injury of sacral region, stage 4: Impression: Wound vac change today. The wound appears much better with beefy red granulation tissue at its base. It has minimal depth. There is a tunnel on the medial aspect which is 5 cm deep. I have packed this with sponge. The area of the wound itself measures 15 cm x 8 cm at its greatest width and length. The wound VAC has been very effective at protecting the wound from fecal soilage and appears to be encouraging growth of granulation tissue.. (6) Pressure injury of right calf, stage 4: Impression: he has multiple small ulcerations at his toes. Wound care FINISHER ACCORDION has made recommendations for the ulceration's care. vascular studies show An JENNIFER on the left of 0.89 and on the right of 0.97, however I would not trust these measurements completely as they can be falsely elevated due to vessel calcification. Duplex scan of bilateral lower extremity arteries shows on the right lower extremity monophasic flow in the deep superficial femoral artery the posterior tibial artery and anterior tibial artery both show monophasic flow. On the left lower extremity there is monophasic flow in the posterior tibial artery and dorsalis pedis artery. This patient would likely benefit from vascular surgery consultation. Wound VAC was changed to the pressure injury of the right calf today. There is a fair amount of fibrinous slough in this wound. About 40%. There is a rim of beefy granulation tissue. The wound itself measures 2.5 cm wide by 8 cm long and there is no significant depth. (7) CHF (congestive heart failure): Impression: This patient has been on Jardiance for several months. His is very concerned about the medication. She believes it is giving him side effects. She states she saw commercial on television and he has every single one of the side effects. She would like him to discontinue Jardiance. He has not been getting Jardiance since he has been here and of course he feels better but I have also treated him for urosepsis. Both she and her agree that he would like to go off the Jardiance for a period of time and see if he feels better. I will discharge him back to [facility] off of Jardiance. (8) Atrial fibrillation: Impression: anti coagulation continued. I will restart his beta blockers as his BP has normalized, HR remains <100. I have spent 55 minutes in the care of this patient today. This includes time [id number], review and ordering of diagnostic imaging and laboratory studies. Monitoring the patient's signs symptoms, evaluation of medication effectiveness and patient's response to treatment. (9) Encephalopathy: Impression: secondary to sepsis, resolved.
[2024-12-19] MEDS ORDERED: ALBUTEROL NEB 2.5 MG/3 ML INH PRN (13:28)
[2024-12-19] MEDS: IPRATROPIUM/ALBUTEROL 3 ML NEB INH SCH (16:35)
[2024-12-20 13:22] LABS: BASOPHILS % (AUTO) 0.7 %; EOSINOPHILS # (AUTO) 0.2 10^3/uL (0.0-0.7); EOSINOPHILS % (AUTO) 2.7 %; HCT - HEMATOCRIT 28.7 % (42.0-52.0); HGB - HEMOGLOBIN 8.9 g/dL (14.0-18.0); LYMPHOCYTES # (AUTO) 0.5 10^3/uL (1.5-3.5); LYMPHOCYTES % (AUTO) 8.4 %; MEAN CORPUSCULAR VOLUME 93.5 fL (80.0-94.0); MEAN PLATELET VOLUME 7.8 fL (7.4-11.4); MONOCYTES # (AUTO) 0.7 10^3/uL (0.0-1.0); MONOCYTES % (AUTO) 11.7 %; NEUTROPHILS # (AUTO) 4.6 10^3/uL (1.5-6.6); PLT - PLATELET COUNT 284 10^3/uL (130-450); RED BLOOD COUNT 3.07 10^6/uL (4.70-6.10); RED CELL DISTRIBUTION WIDTH 16.7 % (12.0-15.0)
[2024-12-20 13:53] LABS: CALCIUM 7.5 mg/dL (8.5-10.3); CREATININE 0.4 mg/dL (0.6-1.3); POTASSIUM 3.5 mmol/L (3.5-4.5)
--- NOTE | 2024-12-20 17:18 | PROVIDER PROGRESS NOTE ---
Subjective Prog Note Date Prog Note Date: 12/20/24 Subjective Pt reports feeling: Improved Subjective: Things are going well. he is eating lunch. has not been out of bed since admission. at the SNF he was walking about 40 feet with a walker. we removed crowder yesterday, and he has been voiding well. Current Medications Current Medications Current Medications: Current Medications Generic Name Dose Route Start Last Admin Trade Name Freq PRN Reason Stop Dose Admin Acetaminophen 650 mg 12/17/24 22:20 Acetaminophen 325 Mg Tablet PO Q4H PRN fever or pain Albuterol 2.5 mg 12/19/24 13:28 Albuterol Neb 2.5 Mg/3 Ml INH RTQ4H PRN Wheezing Albuterol/Ipratropium 3 ml 12/20/24 10:11 Ipratropium/Albuterol 3 Ml Neb INH RTQID PRN Wheezing Apixaban 5 mg 12/18/24 09:00 12/20/24 08:24 Apixaban 5 Mg Tablet PO 5 mg BID HALLE Administration Atorvastatin Calcium 40 mg 12/18/24 09:00 12/20/24 08:24 Atorvastatin 40 Mg Tablet PO 40 mg DAILY HALLE Administration Carvedilol 3.125 mg 12/19/24 09:00 12/20/24 08:24 Carvedilol 3.125 Mg Tablet PO 3.125 mg BID HALLE Administration Ceftriaxone Sodium 1 gm 12/18/24 09:00 12/20/24 08:25 Ceftriaxone 1 Gm Vial IVP 12/22/24 09:01 1 gm DAILY HALLE Administration Clopidogrel Bisulfate 75 mg 12/17/24 23:00 12/20/24 08:24 Clopidogrel 75 Mg Tablet PO 75 mg DAILY HALLE Administration Gabapentin 300 mg 12/18/24 09:00 12/20/24 08:24 Gabapentin 300 Mg Capsule PO 300 mg BID HALLE Administration Hydromorphone HCl 0.5 mg 12/17/24 19:20 12/20/24 12:15 Hydromorphone 0.5 Mg/0.5 Ml Syringe IVP 0.5 mg Q2H PRN Administration Severe Pain (Level 7-10) Dextrose/Sodium Chloride 1,000 mls @ 100 mls/hr 12/17/24 13:00 12/20/24 12:27 D5ns IV 0 mls/hr .Q10H HALLE Infusion Multivitamins/Minerals 1 tab 12/18/24 09:00 12/20/24 08:23 Multivitamin W/Minerals Tablet PO 1 tab DAILYWM HALLE Administration Ondansetron HCl 4 mg 12/17/24 12:34 Ondansetron 4 Mg/2 Ml Vial IVP Q6HR PRN Nausea / Vomiting Oxycodone HCl 5 mg 12/17/24 17:32 12/20/24 16:24 Oxycodone 5 Mg Tablet PO 5 mg Q4HR PRN Administration Moderate Pain (Level 4-6) Patient Own Med ( 1 each 12/18/24 09:00 12/20/24 08:24 Jardiance 10mg) PO Not Given DAILY HALLE Patient Own Med ( 1 each 12/18/24 09:00 12/20/24 08:24 Ezetimibe 10 Mg PO Not Given Tablet) DAILY HALLE Sodium Chloride 10 ml 12/17/24 12:34 12/17/24 21:23 Sodium Chloride Flush 0.9% 10 Ml Syringe IVP 10 ml PRN PRN Administration NEEDED PER PROVIDER ORDERS Sodium Chloride 10 ml 12/17/24 17:00 12/20/24 16:24 Sodium Chloride Flush 0.9% 10 Ml Syringe IVP 10 ml 0100,0900,1700 HALLE Administration Spironolactone 25 mg 12/18/24 09:00 12/20/24 08:24 Spironolactone 25 Mg Tablet PO 25 mg DAILY HALLE Administration Vancomycin HCl 125 mg 12/17/24 21:00 12/20/24 16:24 Vancomycin 125 Mg Capsule PO 125 mg QID HALLE Administration Zinc Oxide 113 gm 12/18/24 00:29 12/19/24 08:43 Cod Liver Oil/Zinc Oxide 113 Gm Tube TOP 1 applic PRN PRN Administration Skin Care Objective Vital Signs/Intake & Output Reviewed Vital Signs: Yes Vital Signs: Vital Signs x48h Temp Pulse Resp BP Pulse Ox 12/20/24 16:26 37.1 C 85 18 122/59 L 96 Intake & Output: Intake & Output 12/17/24 12/18/24 12/19/24 12/20/24 23:59 23:59 23:59 23:59 Intake Total 2600 / 2600 3390 / 3390 3665 / 3665 2687 / 2687 Output Total 400 / 400 1650 / 1650 1875 / 1875 805 / 805 Balance 2200 / 2200 1740 / 1740 1790 / 1790 1882 / 1882 Weight (kg) 56 kg Objective General Appearance: positive No acute distress and Alert Eyes Bilateral: positive Normal inspection ENT: positive ENT inspection nml Neck: positive Nml inspection Respiratory: positive Chest non-tender, No respiratory distress and Breath sounds nml Cardiovascular: positive Regular rate & rhythm Abdomen: positive Non-tender Back: positive Nml inspection Skin: positive Color nml and Other (wound vacs are in place and functioning well without any signifcant drainage. ) Extremities: positive Non-tender and No pedal edema Neurologic/Psychiatric: positive Oriented x3 Lab Results 12/20/24 13:10 12/20/24 13:10 Other Labs: Lab Results x24hrs 12/20/24 Range/Units 13:10 WBC 6.0 (4.8-10.8) x10^3/uL RBC 3.07 L (4.70-6.10) 10^6/uL Hgb 8.9 L (14.0-18.0) g/dL Hct 28.7 L (42.0-52.0) % MCV 93.5 (80.0-94.0) fL MCH 29.0 (27.0-31.0) pg MCHC 31.0 L (32.0-36.0) g/dL RDW 16.7 H (12.0-15.0) % Plt Count 284 (130-450) 10^3/uL MPV 7.8 (7.4-11.4) fL Neut # (Auto) 4.6 (1.5-6.6) 10^3/uL Lymph # (Auto) 0.5 L (1.5-3.5) 10^3/uL [place] # (Auto) 0.7 (0.0-1.0) 10^3/uL Eos # (Auto) 0.2 (0.0-0.7) 10^3/uL Baso # (Auto) 0.0 (0.0-0.1) 10^3/uL Absolute Nucleated RBC 0.00 x10^3/uL Nucleated RBC % 0.0 /100WBC Sodium 131 L (135-145) mmol/L Potassium 3.5 (3.5-4.5) mmol/L Chloride 100 L (101-111) mmol/L Carbon Dioxide 29 (21-32) mmol/L Anion Gap 2.0 L (6-13) BUN 15 (6-20) mg/dL Creatinine 0.4 L (0.6-1.3) mg/dL Estimated GFR (MDRD) 206 (>89) Glucose 116 H (74-104) mg/dL Calcium 7.5 L (8.5-10.3) mg/dL Sepsis Event Note (H) Evaluation Current Stage of Sepsis: Resolved Possible source of Sepsis: positive Genitourinary Sepsis Criteria Sepsis Criteria: WBC count greater than 12,000 or less than 4000, AUTOMATIC SEAMER: altered consciousness (unrelated to primary neuro pathology) and MAP less than 65 mmHg Assessment/Plan Problem List (1) Catheter-associated urinary tract infection: Impression: davidson sensitive proteus. Rocephin 1gm daily is appropriate treatment. This is a chronic indwelling crowder that was replaced in the ED. When I discussed the indication for the crowder with spouse at admit, she stated it was there for his wounds and incontinence, further discussed today and decison was made with the patient and the spouse to do a void trial. Successful void trial. he no longer needs the crowder. Should still receive 7 days of treatment. I will continue with IV rocephin while here. I will change to Augmentin 875/125 on discharge for the remainder of the 7 days. Qualifiers: Encounter type: initial encounter Indwelling urinary catheter type: i ndwelling urethral catheter Qualified Code(s): T83.511A - Infection and inflammatory reaction due to indwelling urethral catheter, initial encounter; N39.0 - Urinary tract infection, site not specified (2) C. difficile colitis: Impression: ongoing diarrhea for about a month, has been difficult to manage. started on PO vanc, stools have abated. We will continue this for 10 days. (3) Pressure injury of sacral region, stage 4: Impression: Wound vac change yesterday The wound appears much better with beefy red granulation tissue at its base. It has minimal depth. There is a tunnel on the medial aspect which is 5 cm deep. I have packed this with sponge. The area of the wound itself measures 15 cm x 8 cm at its greatest width and length. The wound VAC has been very effective at protecting the wound from fecal soilage and appears to be encouraging growth of granulation tissue. I am very hesitant to dc to SNF without the vac in place at this time. It is protecting the wound very effectively. yesterday when I was changing vac, patient was actively stooling liquid stool. the vac that I removed had scant fecal soilage at the edge of the drape, but no where near the ulceration. I beleive that had the wound had a wet to dry in place, there would have been stool in the wound. HE IS MEDICALLY CLEAR FOR DISCHARGE, PENDING VAC THERAPY AVAILABILITY AT [facility] (4) Protein-calorie malnutrition, severe: Impression: He has had a very significant weight loss in the last year. ab 20kg in the last 5 months. has decub ulcers. this makes it very difficult to heal ulcerations. doctor of radiology has consulted and is making recommendations for protein and vitamin intake. he is being actively seen by dietary services. (5) Sepsis: Impression: Patient presents to the emergency department with altered mental status, leukocytosis of 14.8 and hypotension. This is likely related to his urinary tract infection. He has not been having a fever he has not been having any cough. He was treated with IV fluids in the emergency department and transferred to the floor. Will treat the source of his sepsis namely his catheter associated urinary tract infection. His sepsis is resolved . Qualifiers: Sepsis acute organ dysfunction status: with acute organ dysfunction S epsis type: sepsis due to unspecified organism Severe sepsis acute organ dysfunction type: encephalopathy Severe sepsis shock status: without septic shock Qualified Code(s): A41.9 - Sepsis, unspecified organism; R65.20 - Severe sepsis without septic shock; G93.41 - Metabolic encephalopathy (6) Pressure injury of right calf, stage 4: Impression: he has multiple small ulcerations at his toes. Wound care DIRECTOR MEDICAL SURGICAL has made recommendations for the ulceration's care. vascular studies show An JENNIFER on the left of 0.89 and on the right of 0.97, however I would not trust these measurements completely as they can be falsely elevated due to vessel calcification. Duplex scan of bilateral lower extremity arteries shows on the right lower extremity monophasic flow in the deep superficial femoral artery the posterior tibial artery and anterior tibial artery both show monophasic flow. On the left lower extremity there is monophasic flow in the posterior tibial artery and dorsalis pedis artery. This patient would likely benefit from vascular surgery consultation. Wound VAC was changed to the pressure injury of the right calf today. There is a fair amount of fibrinous slough in this wound. About 40%. There is a rim of beefy granulation tissue. The wound itself measures 2.5 cm wide by 8 cm long and there is no significant depth. I would recommend vascular surgery consultation on discharge. (7) CHF (congestive heart failure): Impression: This patient has been on Jardiance for several months. His is very concerned about the medication. She believes it is giving him side effects. She states she saw commercial on television and he has every single one of the side effects. She would like him to discontinue Jardiance. He has not been getting Jardiance since he has been here and of course he feels better but I have also treated him for urosepsis. Both she and her agree that he would like to go off the Jardiance for a period of time and see if he feels better. I will discharge him back to assisted off of Jardiance. (8) Atrial fibrillation: Impression: anti coagulation continued. I will restart his beta blockers as his BP has normalized, HR remains <100. I have spent 38 minutes in the care of this patient today. This includes time [id number], review and ordering of diagnostic imaging and laboratory studies. Monitoring the patient's signs symptoms, evaluation of medication effectiveness and patient's response to treatment.
[2024-12-20] MEDS: IPRATROPIUM/ALBUTEROL 3 ML NEB INH PRN (20:15)
[2024-12-21 13:56] LABS: BASOPHILS % (AUTO) 0.5 %; EOSINOPHILS # (AUTO) 0.1 10^3/uL (0.0-0.7); EOSINOPHILS % (AUTO) 0.8 %; HCT - HEMATOCRIT 28.8 % (42.0-52.0); HGB - HEMOGLOBIN 9.1 g/dL (14.0-18.0); LYMPHOCYTES # (AUTO) 0.4 10^3/uL (1.5-3.5); LYMPHOCYTES % (AUTO) 4.7 %; MEAN CORPUSCULAR HEMOGLOBIN 29.4 pg (27.0-31.0); MEAN CORPUSCULAR HGB CONC 31.6 g/dL (32.0-36.0); MEAN CORPUSCULAR VOLUME 92.9 fL (80.0-94.0); MEAN PLATELET VOLUME 7.8 fL (7.4-11.4); MONOCYTES % (AUTO) 11.6 %; NEUTROPHILS # (AUTO) 7.2 10^3/uL (1.5-6.6); NEUTROPHILS % (AUTO) 81.8 %; PLT - PLATELET COUNT 276 10^3/uL (130-450); RED CELL DISTRIBUTION WIDTH 16.5 % (12.0-15.0); WHITE BLOOD COUNT 8.8 x10^3/uL (4.8-10.8)
[2024-12-21 14:07] LABS: CALCIUM 7.8 mg/dL (8.5-10.3); CREATININE 0.4 mg/dL (0.6-1.3); POTASSIUM 3.5 mmol/L (3.5-4.5)
[2024-12-21] MEDS: PHENAZOPYRIDINE 100 MG TABLET PO SCH (15:09)
--- NOTE | 2024-12-21 16:39 | PROVIDER PROGRESS NOTE ---
Subjective Prog Note Date Prog Note Date: 12/21/24 Subjective Subjective: he is doing well. he has been able to urinate independently, 350cc in the urinal when I came in. dysuria is improving, slowly, after crowder removal. He has had PVRs of about 400ml. Current Medications Current Medications Current Medications: Current Medications Generic Name Dose Route Start Last Admin Trade Name Freq PRN Reason Stop Dose Admin Acetaminophen 650 mg 12/17/24 22:20 Acetaminophen 325 Mg Tablet PO Q4H PRN fever or pain Albuterol 2.5 mg 12/19/24 13:28 Albuterol Neb 2.5 Mg/3 Ml INH RTQ4H PRN Wheezing Albuterol/Ipratropium 3 ml 12/20/24 10:11 12/20/24 20:15 Ipratropium/Albuterol 3 Ml Neb INH 3 ml RTQID PRN Administration Wheezing Apixaban 5 mg 12/18/24 09:00 12/21/24 08:53 Apixaban 5 Mg Tablet PO 5 mg BID HALLE Administration Atorvastatin Calcium 40 mg 12/18/24 09:00 12/21/24 08:53 Atorvastatin 40 Mg Tablet PO 40 mg DAILY HALLE Administration Carvedilol 3.125 mg 12/19/24 09:00 12/21/24 08:54 Carvedilol 3.125 Mg Tablet PO 3.125 mg BID HALLE Administration Ceftriaxone Sodium 1 gm 12/18/24 09:00 12/21/24 10:34 Ceftriaxone 1 Gm Vial IVP 12/22/24 09:01 1 gm DAILY HALLE Administration Clopidogrel Bisulfate 75 mg 12/17/24 23:00 12/21/24 08:53 Clopidogrel 75 Mg Tablet PO 75 mg DAILY HALLE Administration Gabapentin 300 mg 12/18/24 09:00 12/21/24 08:53 Gabapentin 300 Mg Capsule PO 300 mg BID HALLE Administration Hydromorphone HCl 0.5 mg 12/17/24 19:20 12/21/24 15:42 Hydromorphone 0.5 Mg/0.5 Ml Syringe IVP 0.5 mg Q2H PRN Administration Severe Pain (Level 7-10) Multivitamins/Minerals 1 tab 12/18/24 09:00 12/21/24 08:53 Multivitamin W/Minerals Tablet PO 1 tab DAILYWM HALLE Administration Ondansetron HCl 4 mg 12/17/24 12:34 Ondansetron 4 Mg/2 Ml Vial IVP Q6HR PRN Nausea / Vomiting Oxycodone HCl 5 mg 12/17/24 17:32 12/21/24 13:22 Oxycodone 5 Mg Tablet PO 5 mg Q4HR PRN Administration Moderate Pain (Level 4-6) Phenazopyridine HCl 100 mg 12/21/24 15:00 12/21/24 15:09 Phenazopyridine 100 Mg Tablet PO 12/24/24 06:01 100 mg TID HALLE Administration Sodium Chloride 10 ml 12/17/24 12:34 12/21/24 06:35 Sodium Chloride Flush 0.9% 10 Ml Syringe IVP 10 ml PRN PRN Administration NEEDED PER PROVIDER ORDERS Sodium Chloride 10 ml 12/17/24 17:00 12/21/24 15:42 Sodium Chloride Flush 0.9% 10 Ml Syringe IVP 10 ml 0100,0900,1700 HALLE Administration Spironolactone 25 mg 12/18/24 09:00 12/21/24 08:54 Spironolactone 25 Mg Tablet PO 25 mg DAILY HALLE Administration Vancomycin HCl 125 mg 12/17/24 21:00 12/21/24 13:19 Vancomycin 125 Mg Capsule PO 125 mg QID HALLE Administration Zinc Oxide 113 gm 12/18/24 00:29 12/19/24 08:43 Cod Liver Oil/Zinc Oxide 113 Gm Tube TOP 1 applic PRN PRN Administration Skin Care Objective Vital Signs/Intake & Output Reviewed Vital Signs: Yes Vital Signs: Vital Signs x48h Temp Pulse Resp BP Pulse Ox 12/21/24 15:40 37.1 C 96 24 110/58 L 96 Intake & Output: Intake & Output 12/18/24 12/19/24 12/20/24 12/21/24 23:59 23:59 23:59 23:59 Intake Total 3390 / 3390 3665 / 3665 2927 / 2927 1020 / 1020 Output Total 1650 / 1650 1875 / 1875 1280 / 1280 1215 / 1215 Balance 1740 / 1740 1790 / 1790 1647 / 1647 -195 / -195 Objective General Appearance: positive No acute distress and Alert Eyes Bilateral: positive Normal inspection ENT: positive ENT inspection nml Neck: positive Nml inspection Respiratory: positive Chest non-tender, No respiratory distress and Breath sounds nml Cardiovascular: positive Regular rate & rhythm Abdomen: positive Non-tender Back: positive Nml inspection Skin: positive Color nml and Other (wound vacs are in place and functioning well without any signifcant drainage. ) Extremities: positive Non-tender and No pedal edema Neurologic/Psychiatric: positive Oriented x3 Lab Results 12/21/24 13:50 12/21/24 13:50 Other Labs: Lab Results x24hrs 12/21/24 Range/Units 13:50 WBC 8.8 (4.8-10.8) x10^3/uL RBC 3.10 L (4.70-6.10) 10^6/uL Hgb 9.1 L (14.0-18.0) g/dL Hct 28.8 L (42.0-52.0) % MCV 92.9 (80.0-94.0) fL MCH 29.4 (27.0-31.0) pg MCHC 31.6 L (32.0-36.0) g/dL RDW 16.5 H (12.0-15.0) % Plt Count 276 (130-450) 10^3/uL MPV 7.8 (7.4-11.4) fL Neut # (Auto) 7.2 H (1.5-6.6) 10^3/uL Lymph # (Auto) 0.4 L (1.5-3.5) 10^3/uL [place] # (Auto) 1.0 (0.0-1.0) 10^3/uL Eos # (Auto) 0.1 (0.0-0.7) 10^3/uL Baso # (Auto) 0.0 (0.0-0.1) 10^3/uL Absolute Nucleated RBC 0.00 x10^3/uL Nucleated RBC % 0.0 /100WBC Sodium 128 L (135-145) mmol/L Potassium 3.5 (3.5-4.5) mmol/L Chloride 96 L (101-111) mmol/L Carbon Dioxide 29 (21-32) mmol/L Anion Gap 3.0 L (6-13) BUN 16 (6-20) mg/dL Creatinine 0.4 L (0.6-1.3) mg/dL Estimated GFR (MDRD) 206 (>89) Glucose 113 H (74-104) mg/dL Calcium 7.8 L (8.5-10.3) mg/dL Sepsis Event Note (H) Evaluation Current Stage of Sepsis: Resolved Possible source of Sepsis: positive Genitourinary Assessment/Plan Problem List (1) Catheter-associated urinary tract infection: Impression: davidson sensitive proteus. Rocephin 1gm daily is appropriate treatment. This is a chronic indwelling crowder that was replaced in the ED. When I discussed the indication for the crowder with spouse at admit, she stated it was there for his wounds and incontinence, further discussed today and decison was made with the patient and the spouse to do a void trial. Successful void trial. he no longer needs the crowder. Should still receive 7 days of treatment. I will continue with IV rocephin while here. I will change to Augmentin 875/125 on discharge for the remainder of the 7 days. He is having some dysuria and elevated PVRs. I will continue to monitor and have started pyridium 200mg TID as a urinary tract analgesic to see if this is helpful for him. Qualifiers: Encounter type: initial encounter Indwelling urinary catheter type: i ndwelling urethral catheter Qualified Code(s): T83.511A - Infection and inflammatory reaction due to indwelling urethral catheter, initial encounter; N39.0 - Urinary tract infection, site not specified (2) C. difficile colitis: Impression: ongoing diarrhea for about a month, has been difficult to manage. started on PO vanc, stools have abated. We will continue this for 10 days. (3) Pressure injury of sacral region, stage 4: Impression: Wound vac change 2 days ago, will do this again tomorrow. The wound appears much better with beefy red granulation tissue at its base. It has minimal depth. There is a tunnel on the medial aspect which is 5 cm deep. I have packed this with sponge. The area of the wound itself measures 15 cm x 8 cm at its greatest width and length. The wound VAC has been very effective at protecting the wound from fecal soilage and appears to be encouraging growth of granulation tissue. I am very hesitant to dc to SNF without the vac in place at this time. It is protecting the wound very effectively. when I was changing vac, patient was actively stooling liquid stool. the vac that I removed had scant fecal soilage at the edge of the drape, but no where near the ulceration. I believe that had the wound had a wet to dry in place, there would have been stool in the wound. HE IS MEDICALLY CLEAR FOR DISCHARGE, PENDING VAC THERAPY AVAILABILITY AT [facility] (4) Protein-calorie malnutrition, severe: Impression: He has had a very significant weight loss in the last year. ab 20kg in the last 5 months. has decub ulcers. this makes it very difficult to heal ulcerations. wood technologist has consulted and is making recommendations for protein and vitamin intake. he is being actively seen by dietary services. his intake here has been pretty good. yesterday ate 100% breakfast and lunch, but 25% dinner. Today 75% breakfast, 25% lunch. (5) Sepsis: Impression: Patient presents to the emergency department with altered mental status, leukocytosis of 14.8 and hypotension. This is likely related to his urinary tract infection. He has not been having a fever he has not been having any cough. He was treated with IV fluids in the emergency department and transferred to the floor. Will treat the source of his sepsis namely his catheter associated urinary tract infection. His sepsis is resolved . Qualifiers: Sepsis acute organ dysfunction status: with acute organ dysfunction S epsis type: sepsis due to unspecified organism Severe sepsis acute organ dysfunction type: encephalopathy Severe sepsis shock status: without septic shock Qualified Code(s): A41.9 - Sepsis, unspecified organism; R65.20 - Severe sepsis without septic shock; G93.41 - Metabolic encephalopathy (6) Pressure injury of right calf, stage 4: Impression: he has multiple small ulcerations at his toes. Wound care GIVER has made recommendations for the ulceration's care. vascular studies show An JENNIFER on the left of 0.89 and on the right of 0.97, however I would not trust these measurements completely as they can be falsely elevated due to vessel calcification. Duplex scan of bilateral lower extremity arteries shows on the right lower extremity monophasic flow in the deep superficial femoral artery the posterior tibial artery and anterior tibial artery both show monophasic flow. On the left lower extremity there is monophasic flow in the posterior tibial artery and dorsalis pedis artery. This patient would likely benefit from vascular surgery consultation. Wound VAC was changed to the pressure injury of the right calf today. There is a fair amount of fibrinous slough in this wound. About 40%. There is a rim of beefy granulation tissue. The wound itself measures 2.5 cm wide by 8 cm long and there is no significant depth. I would recommend vascular surgery consultation on discharge. (7) CHF (congestive heart failure): Impression: This patient has been on Jardiance for several months. His is very concerned about the medication. She believes it is giving him side effects. She states she saw commercial on television and he has every single one of the side effects. She would like him to discontinue Jardiance. He has not been getting Jardiance since he has been here and of course he feels better but I have also treated him for urosepsis. Both she and her agree that he would like to go off the Jardiance for a period of time and see if he feels better. I will discharge him back to custodial off of Jardiance. 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 Dr Lindsey wanted 3 mo followup, which would be early January. reading through the cardiology notes, there was some mention of Watchman procedure to be done at [facility], but it sounds as if he has been too sick for implementation of this plan. (8) Atrial fibrillation: Impression: anti coagulation continued. I will restart his beta blockers as his BP has normalized, HR remains <100. I have spent 30 minutes in the care of this patient today. This includes time [id number], review and ordering of diagnostic imaging and laboratory studies.
--- NOTE | 2024-12-21 17:27 | PT Plan of Care ---
PT Inpatient Plan of Care DIAGNOSIS Diagnosis: a-fib Diagnosis: AMS and hypotension Referring Provider: Emily Urbina Patient Status: Inpatient CHIEF COMPLAINT Chief Complaint: weakness Onset of Chief Complaint: DEVOPS DEVELOPER on 12/17/24 MEDICAL/SURGICAL HISTORY Medical History (Updated 12/19/24 @ 00:00 by ) Diabetes BALANCE/FUNCTIONAL RESULTS Sitting Balance: Fair Standing Balance: Poor ASSESSMENT Assessment: The pt is an 84 y/o M who arrived to the ED on 12/17/24 due to AMS and hypotension, he was hospitalized with a-fib. He had a CVA in Oct 2024 and has had multiple hospitalizations since Jul, please see chart for complete medical hx. He is currently on contact precautions for C-diff and has multiple wound vacs for pressure wounds. The pt was received resting comfortably supine in bed and presented today with decreased B UE and LE strength and decreased activity tolerance which limited his tolerance with functional mobility. His overall tolerance throughout this assessment was limited by weakness and fatigue. He declined all attempts to perform any OOB mobility training, however, he agreed to perform this tomorrow. At this time recommend continued skilled PT intervention while in the acute setting and DC to back to prior SNF for further rehab once pt medically stable. This plan was discussed with the pt and he was in agreement with this. At the end of the session the pt was supine in bed with call light in reach and all needs met. RN and PA updated on pt's status and DC rec. PATIENT/FAMILY GOALS Patient/Family Goals: To get stronger and have wounds heal GOALS Improve supine to sit to:: Modified Independent Improve sit to stand to:: Minimal Assist Improve pivot transfer ability to:: Minimal Assist Improve sit to supine to:: Modified Independent Advance Assistive Device to:: Front Wheeled Walker Increase distance walked to (in feet):: 15 PLAN Frequency: 1-2x/day Duration: Until discharge DISCHARGE RECOMMENDATIONS Discharge Location: Long-Term Facility Support/Services Needed: With assist Transport Needs at Discharge: [place]
[2024-12-22 04:35] LABS: BASOPHILS % (AUTO) 0.6 %; EOSINOPHILS # (AUTO) 0.2 10^3/uL (0.0-0.7); EOSINOPHILS % (AUTO) 2.3 %; HCT - HEMATOCRIT 24.1 % (42.0-52.0); HGB - HEMOGLOBIN 7.5 g/dL (14.0-18.0); LYMPHOCYTES # (AUTO) 0.6 10^3/uL (1.5-3.5); LYMPHOCYTES % (AUTO) 8.7 %; MEAN CORPUSCULAR HEMOGLOBIN 28.7 pg (27.0-31.0); MEAN CORPUSCULAR HGB CONC 31.1 g/dL (32.0-36.0); MEAN CORPUSCULAR VOLUME 92.3 fL (80.0-94.0); MONOCYTES # (AUTO) 1.3 10^3/uL (0.0-1.0); MONOCYTES % (AUTO) 17.9 %; NEUTROPHILS # (AUTO) 4.9 10^3/uL (1.5-6.6); NEUTROPHILS % (AUTO) 69.8 %; PLT - PLATELET COUNT 231 10^3/uL (130-450); RED BLOOD COUNT 2.61 10^6/uL (4.70-6.10); RED CELL DISTRIBUTION WIDTH 16.4 % (12.0-15.0); WHITE BLOOD COUNT 7.1 x10^3/uL (4.8-10.8)
[2024-12-22 04:52] LABS: CALCIUM 7.6 mg/dL (8.5-10.3); CREATININE 0.4 mg/dL (0.6-1.3); POTASSIUM 3.6 mmol/L (3.5-4.5)
--- NOTE | 2024-12-22 12:08 | PROVIDER PROGRESS NOTE ---
Progress Note Progress Note Progress Note: Wound VAC supply list, needed for each dressing change to be performed on Wednesdays and Fridays weekly.: 1 small sponge kit with TRAC pad 1 medium sponge kit, with TRAC pad 2 reservoirs because you are septic 2 VAC machine units.
[2024-12-22] MEDS: HYDROmorphone 1 MG/ML CARPUJECT IVP PRN (14:29)
[2024-12-22] MEDS: ZINC OXIDE 20% OINT 60 GM TUBE TP PRN (14:30)
[2024-12-22] MEDS: SODIUM CHLORIDE 1 GM TABLET PO SCH (14:45)
--- NOTE | 2024-12-22 15:54 | PROVIDER PROGRESS NOTE ---
Subjective Prog Note Date Prog Note Date: 12/22/24 Prog Note Time: 15:24 Subjective Subjective: Patient is 84 year-old male presenting with sepsis secondary to catheter associated urinary tract infection. Patient reports feeling ok. He reports increased cough with sputum which began during this hospital admission, and does not occur at home and is unusual. and neighbor present at bedside. Current Medications Current Medications Current Medications: Current Medications Generic Name Dose Route Start Last Admin Trade Name Freq PRN Reason Stop Dose Admin Acetaminophen 650 mg 12/17/24 22:20 Acetaminophen 325 Mg Tablet PO Q4H PRN fever or pain Albuterol 2.5 mg 12/19/24 13:28 Albuterol Neb 2.5 Mg/3 Ml INH RTQ4H PRN Wheezing Albuterol/Ipratropium 3 ml 12/20/24 10:11 12/20/24 20:15 Ipratropium/Albuterol 3 Ml Neb INH 3 ml RTQID PRN Administration Wheezing Apixaban 5 mg 12/18/24 09:00 12/22/24 08:20 Apixaban 5 Mg Tablet PO 5 mg BID HALLE Administration Ascorbic Acid 500 mg 12/23/24 17:00 Ascorbic Acid 500 Mg Tablet PO DAILY HALLE Atorvastatin Calcium 40 mg 12/18/24 09:00 12/22/24 08:20 Atorvastatin 40 Mg Tablet PO 40 mg DAILY HALLE Administration Carvedilol 3.125 mg 12/19/24 09:00 12/22/24 08:20 Carvedilol 3.125 Mg Tablet PO Not Given BID HALLE Clopidogrel Bisulfate 75 mg 12/17/24 23:00 12/22/24 08:19 Clopidogrel 75 Mg Tablet PO 75 mg DAILY HALLE Administration Gabapentin 300 mg 12/18/24 09:00 12/22/24 08:20 Gabapentin 300 Mg Capsule PO 300 mg BID HALLE Administration Hydromorphone HCl 1 mg 12/22/24 14:11 12/22/24 14:29 Hydromorphone 1 Mg/Ml Carpuject IVP 1 mg Q2H PRN Administration Severe Pain (Level 7-10) Multi-Ingredient Ointment 1 applic 12/22/24 14:07 12/22/24 14:30 Zinc Oxide 20% Oint 60 Gm Tube TP 1 applic PRN PRN Administration Skin Care Multivitamins/Minerals 1 tab 12/18/24 09:00 12/22/24 08:20 Multivitamin W/Minerals Tablet PO 1 tab DAILYWM HALLE Administration Ondansetron HCl 4 mg 12/17/24 12:34 Ondansetron 4 Mg/2 Ml Vial IVP Q6HR PRN Nausea / Vomiting Oxycodone HCl 5 mg 12/17/24 17:32 12/22/24 13:29 Oxycodone 5 Mg Tablet PO 5 mg Q4HR PRN Administration Moderate Pain (Level 4-6) Phenazopyridine HCl 100 mg 12/21/24 15:00 12/22/24 13:29 Phenazopyridine 100 Mg Tablet PO 12/24/24 06:01 100 mg TID HALLE Administration Saccharomyces Boulardii 500 mg 12/22/24 17:00 Saccharomyces Boulardii 250 Mg Capsule PO BIDWM HALLE Sodium Chloride 10 ml 12/17/24 12:34 12/21/24 06:35 Sodium Chloride Flush 0.9% 10 Ml Syringe IVP 10 ml PRN PRN Administration NEEDED PER PROVIDER ORDERS Sodium Chloride 10 ml 12/17/24 17:00 12/22/24 08:19 Sodium Chloride Flush 0.9% 10 Ml Syringe IVP 10 ml 0100,0900,1700 HALLE Administration Sodium Chloride 1 gm 12/22/24 13:00 12/22/24 14:45 Sodium Chloride 1 Gm Tablet PO 1 gm BID HALLE Administration Spironolactone 25 mg 12/18/24 09:00 12/22/24 08:21 Spironolactone 25 Mg Tablet PO Not Given DAILY HALLE Vancomycin HCl 125 mg 12/17/24 21:00 12/22/24 13:29 Vancomycin 125 Mg Capsule PO 125 mg QID HALLE Administration Zinc Oxide 113 gm 12/18/24 00:29 12/22/24 08:21 Cod Liver Oil/Zinc Oxide 113 Gm Tube TOP 1 applic PRN PRN Administration Skin Care Objective Vital Signs/Intake & Output Reviewed Vital Signs: Yes Vital Signs: Vital Signs x48h Temp Pulse Resp BP BP Pulse Ox 12/22/24 08:14 37.4 C 89 18 97/49 L 90/45 L 97 Intake & Output: Intake & Output 12/19/24 12/20/24 12/21/24 12/22/24 23:59 23:59 23:59 23:59 Intake Total 3665 / 3665 2927 / 2927 1440 / 1440 680 / 680 Output Total 1875 / 1875 1280 / 1280 1215 / 1215 625 / 625 Balance 1790 / 1790 1647 / 1647 225 / 225 55 / 55 Objective General Appearance: positive No acute distress and Alert Eyes Bilateral: positive Normal inspection ENT: positive ENT inspection nml Neck: positive Nml inspection Respiratory: positive Rhonchi Cardiovascular: positive Regular rate & rhythm Abdomen: positive Non-tender and No distention Back: positive Nml inspection Skin: positive Color nml, Dry and Decubitus (Sacrum; Right calf - Two wound vacuums in place; functioning well with no evidence of air leaks. ) Extremities: positive Non-tender and No pedal edema Neurologic/Psychiatric: positive Oriented x3 Lab Results 12/22/24 04:30 12/22/24 04:30 Other Labs: Lab Results x24hrs 12/22/24 Range/Units 04:30 WBC 7.1 (4.8-10.8) x10^3/uL RBC 2.61 L (4.70-6.10) 10^6/uL Hgb 7.5 L (14.0-18.0) g/dL Hct 24.1 L (42.0-52.0) % MCV 92.3 (80.0-94.0) fL MCH 28.7 (27.0-31.0) pg MCHC 31.1 L (32.0-36.0) g/dL RDW 16.4 H (12.0-15.0) % Plt Count 231 (130-450) 10^3/uL MPV 8.0 (7.4-11.4) fL Neut # (Auto) 4.9 (1.5-6.6) 10^3/uL Lymph # (Auto) 0.6 L (1.5-3.5) 10^3/uL [place] # (Auto) 1.3 H (0.0-1.0) 10^3/uL Eos # (Auto) 0.2 (0.0-0.7) 10^3/uL Baso # (Auto) 0.0 (0.0-0.1) 10^3/uL Absolute Nucleated RBC 0.00 x10^3/uL Nucleated RBC % 0.0 /100WBC Sodium 129 L (135-145) mmol/L Potassium 3.6 (3.5-4.5) mmol/L Chloride 98 L (101-111) mmol/L Carbon Dioxide 27 (21-32) mmol/L Anion Gap 4.0 L (6-13) BUN 15 (6-20) mg/dL Creatinine 0.4 L (0.6-1.3) mg/dL Estimated GFR (MDRD) 206 (>89) Glucose 112 H (74-104) mg/dL Calcium 7.6 L (8.5-10.3) mg/dL Sepsis Event Note (H) Evaluation Current Stage of Sepsis: Resolved Possible source of Sepsis: positive Genitourinary Sepsis Criteria Sepsis Criteria: WBC count greater than 12,000 or less than 4000, BOWSTRING MAKER: altered consciousness (unrelated to primary neuro pathology) and MAP less than 65 mmHg Assessment/Plan Problem List (1) Catheter-associated urinary tract infection: Impression: Billy sensitive proteus. Rocephin 1gm daily x 5 days completed on 12/22/24. Will continue to assess further need for antibiotic coverage. Patient is spontaneously voiding. Dysuria continues to improve. His PVR remains elevated per nursing. Qualifiers: Encounter type: initial encounter Indwelling urinary catheter type: i ndwelling urethral catheter Qualified Code(s): T83.511A - Infection and inflammatory reaction due to indwelling urethral catheter, initial encounter; N39.0 - Urinary tract infection, site not specified (2) C. difficile colitis: Impression: Patient reports ongoing diarrhea for approximately a month. Patient continues to have loose stools. Currently on PO vancomycin for 10 day course. (3) Hypotension: Impression: Patient's blood pressure is hypotensive (90/45 at 8:14;83/70 at 15:51) likely secondary to fluid loss from diarrhea. NS 0.9% 500mL bolus x1 ordered. AM dose of Spironolactone held. (4) Cough: Impression: Reports increased sputum output in the past 24 hours. Lung sounds rhonchorous and diminished in bases bilaterally. CXR ordered. (5) Pressure injury of sacral region, stage 4: Impression: Wound vac change today. Patient given dose of hydromorphone 1mg prior to wound vac change for pain management. The wound appears to be healing with beefy red granulation tissue at its base. The wound has minimal depth. There is a tunnel on the medial aspect which is 5 cm deep. Tunnel packed with sponge. The area of the wound itself measures 15 cm x 8 cm at its greatest width and length. The wound VAC continues to be very effective at protecting the wound from fecal soilage and appears to be encouraging growth of granulation tissue. Patient was actively stooling liquid stool during wound vac change. However, no stool present at site of wound. HE IS MEDICALLY CLEAR FOR DISCHARGE, PENDING VAC THERAPY AVAILABILITY AT [facility] (6) Protein-calorie malnutrition, severe: Impression: His PO intake is adequate. Today, he ate 90% of breakfast and 75% of lunch. Patient reports significant weight loss of approximately 20kg in the last 5 months. Extermination Supervisor has been consulted and patient is actively being seen by dietary services. (7) Sepsis: Impression: Treated for sepsis secondary to catheter associated UTI with IV abx. His sepsis is now resolved. Qualifiers: Sepsis acute organ dysfunction status: with acute organ dysfunction S epsis type: sepsis due to unspecified organism Severe sepsis acute organ dysfunction type: encephalopathy Severe sepsis shock status: without septic shock Qualified Code(s): A41.9 - Sepsis, unspecified organism; R65.20 - Severe sepsis without septic shock; G93.41 - Metabolic encephalopathy (8) Pressure injury of right calf, stage 4: Impression: Wound VAC was changed to the pressure injury of the right calf today. The wound bed is approximately 50% fibrinous slough. The wound bed has a rim of beefy granulation tissue. The wound itself measures 2.5 cm wide by 7 cm long and there is no significant depth. Patient has multiple small, scattered sites of eschar on his toes. Per Wound care [facility] recommendations, "nursing staff to apply betadine daily to maintain stable eschar." Ankle Branchial Index and duplex scan of BLE completed on 12/19/24. This patient would likely benefit from vascular surgery consultation. (9) CHF (congestive heart failure): Impression: has concerns about the patient taking Jardiance. Risks/benefits discussed with . Current plan is to discharge patient to SNF off of Jardiance. Per outpatient cardiology notes (Cordell Cash with Dr. Lindsey on 11/20/24), patient's ejection fraction is 44% per echocardiogram completed at . 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 Patient is recommended to have 3 month follow up with Dr. Lindsey (in early January). Per cardiology notes from 09/01/24, Watchman procedure [place] [facility] However, patient has been unable to complete procedure due to poor health status. (10) Atrial fibrillation: Impression: Anticoagulation (eliquis) continued. On beta mp (carvedilol); AM dose held per parameters, HR remains <100. Qualifiers: Atrial fibrillation type: paroxysmal Qualified Code(s): I48.0 - Paroxysmal atrial fibrillation
[2024-12-22] MEDS: SODIUM CHLORIDE 0.9% 500 ML IV ONE (17:17)
[2024-12-22] MEDS: SACCHAROMYCES BOULARDII 250 MG CAPSULE PO SCH (17:18)
[2024-12-22] MEDS: SODIUM CHLORIDE 0.9% 1,000 ML IV SCH (17:18)
--- NOTE | 2024-12-22 19:16 | PROVIDER PROGRESS NOTE ---
Progress Note Progress Note Progress Note: Patient was seen and examined by me today. Please see Dr Kingsley's note for details. He continues to stool frequently despite treating C diff. He is having some low blood pressure, possibly due to GI fluid loss. I am holding spironolactone and starting IVF to support him. PVRs are elevated, but he continues to void. He has had a cough productive of sputum today. on lung exam, occasional rhonchi, bilateral. CXR - no infiltrate to my read, radiology read is pending. I changed wound vac today, wound measurements per Dr Kingsley's note. I have spent 60 minutes in the care of this patient today. This includes time [id number], review and ordering of diagnostic imaging . Monitoring the patient's signs symptoms, evaluation of medication effectiveness and patient's response to treatment.
--- NOTE | 2024-12-23 04:00 | XRAY Report ---
PROCEDURE: XR Chest 1V INDICATIONS: cough, sputum TECHNIQUE: One view of the chest was acquired. COMPARISON: None. FINDINGS: Surgical changes and devices: Hardware status post bilateral glenohumeral arthroplasty without evide nce of complication. Lungs and pleura: No pleural effusions or pneumothorax. No consolidation. Minimal lateral left basi lar atelectasis. Mediastinum: Mediastinal contours appear normal. Heart size is normal. Atherosclerotic vascular c alcifications within the aortic arch. Bones and chest wall: No suspicious bony lesions. Overlying soft tissues appear unremarkable. IMPRESSION: No acute cardiopulmonary process. Reviewed by: Bryson Antunez MD on 12/23/2024 3:58 AM PDT Approved by: Bryson Antunez MD on 12/23/2024 3:58 AM PDT Station ID: [id number]
[2024-12-23 05:56] LABS: BASOPHILS % (AUTO) 0.4 %; EOSINOPHILS # (AUTO) 0.2 10^3/uL (0.0-0.7); EOSINOPHILS % (AUTO) 3.1 %; HCT - HEMATOCRIT 24.6 % (42.0-52.0); HGB - HEMOGLOBIN 7.7 g/dL (14.0-18.0); LYMPHOCYTES # (AUTO) 0.4 10^3/uL (1.5-3.5); LYMPHOCYTES % (AUTO) 6.5 %; MEAN CORPUSCULAR HEMOGLOBIN 28.8 pg (27.0-31.0); MEAN CORPUSCULAR HGB CONC 31.3 g/dL (32.0-36.0); MEAN CORPUSCULAR VOLUME 92.1 fL (80.0-94.0); MEAN PLATELET VOLUME 7.9 fL (7.4-11.4); MONOCYTES # (AUTO) 0.9 10^3/uL (0.0-1.0); MONOCYTES % (AUTO) 16.7 %; NEUTROPHILS # (AUTO) 4.1 10^3/uL (1.5-6.6); NEUTROPHILS % (AUTO) 72.8 %; PLT - PLATELET COUNT 213 10^3/uL (130-450); RED BLOOD COUNT 2.67 10^6/uL (4.70-6.10); RED CELL DISTRIBUTION WIDTH 16.2 % (12.0-15.0); WHITE BLOOD COUNT 5.6 x10^3/uL (4.8-10.8)
[2024-12-23 06:10] LABS: CALCIUM 7.3 mg/dL (8.5-10.3); CREATININE 0.3 mg/dL (0.6-1.3); POTASSIUM 3.5 mmol/L (3.5-4.5)
[2024-12-23 08:13] VITALS: BP 107/56; TEMP 99.1; O2SAT 97
[2024-12-23] MEDS: SODIUM CHLORIDE 1 GM TABLET PO SCH (12:10)
--- NOTE | 2024-12-23 13:32 | Discharge Summary ---
Discharge Summary Admit Date: 12/17/24 Discharge Date: 12/23/24 Discharging Provider: Emily Urbina PA-C Primary Care Provider: Sravani Interiano MD Code Status: Attempt Resuscitation DIAGNOSES Discharge Diagnoses with Status of Each Condition: Catheter associated urinary tract infection: Treated and resolved C. difficile colitis: Completing 10 days of vancomycin 250 mg p.o. 4 times daily new Hypotension: Resolved Cough: Chest x-ray negative. Sacral pressure ulceration: Being treated with wound VAC Protein calorie malnutrition severe: Chronic encouraging p.o. intake Sepsis, resolved Pressure injury of right calf: Being treated with wound VAC Congestive heart failure: Patient and spouse requesting discontinuation of Jardiance. This will be discontinued upon transfer to [facility] Atrial fibrillation: Continue Eliquis and carvedilol HPI History of Present Illness: 84-year-old male who is currently at [facility] for rehab presents to the emergency department today for hypotension and altered mental status. He had a stroke several months ago and was transferred to [facility] at that time. He has sacral pressure ulcers as well as a right leg pressure ulcer for which she is being treated at wound care weekly. He has a history of atrial fibrillation on anticoagulation coronary artery disease and CHF. I do not know his ejection fraction. He has a chronic indwelling Marie due to chronic urinary retention. He presents to the emergency department today with altered level of consciousness and hypotension. No his blood pressure upon presentation to the emergency department is 78/56. He has been symptomatic with this is feeling a bit dizzy and tired. His states that yesterday they started to note some cloudiness of the urine. Urinalysis was sent from the [facility] and he was noted to have moderate blood positive nitrites moderate leukocyte esterase with greater than 25 white blood cells per high-powered field many bacteria. Culture shows Proteus species greater than 100,000 colony-forming units sensitivities are pending at this time. Upon presentation to the emergency department the patient's vital signs are as follows: Temp 36.6, pulse 66, respirations 18, O2 saturation 95% on room air, blood pressure 78/56. With resuscitation of 1-1/2 L IV normal saline in the emergency department his blood pressure did improve to the 1 teens over the 50s. Patient, prior to these acute illnesses over the last months was living at home with his . She is his medical decision-maker. Their high school sweetheart's have been together since that time. When questioned about CODE STATUS she very quickly pipes in that she wants him to be full code and full care, he abdicates that choice to her. Remote past medical history of severe traumatic injuries in the [place]. 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 ED visit 08/15/24: transfer to [facility] for STEMI vs NSTEMU ED visit 10/19/24:sepsis with UTI, NSTEMI, transfer to [facility] for ICU care. CONSULTS | PROCEDURES Procedures: Chest x-ray: No acute cardiopulmonary process. HOSPITAL COURSE Hospital Course: (1) Catheter-associated urinary tract infection: Billy sensitive proteus. Rocephin 1gm daily x 5 days completed on 12/22/24. Patient is spontaneously voiding. Dysuria continues to improve. His PVR remains elevated per nursing. I have only ordered straight cath for PVR >500 and as such he has not needed straight cath. (2) C. difficile colitis: Patient reports ongoing diarrhea for approximately a month. Patient continues to have loose stools. Currently on PO vancomycin for 10 day course. diarrhea is improving somewhat, but he continues to be incontinent of loose stool. (3) Hypotension: Impression: Patient's blood pressure is hypotensive (90/45 at 8:14;83/70 at 15:51) likely secondary to fluid loss from diarrhea. Spironolactone was held. BPs have improved. 12/23/24 08:12 Blood Pressure [Right Brachial artery] 107/56 L (4)Cough: Reports increased sputum output in the past 24 hours. Lung sounds rhonchorous and diminished in bases bilaterally. CXR neg. continue treatment for COPD. (5) Pressure injury of sacral region, stage 4: Impression: Wound vac therapy The wound appears to be healing with beefy red granulation tissue at its base. The wound has minimal depth. There is a tunnel on the medial aspect which is 5 cm deep. Tunnel packed with sponge. The area of the wound itself measures 15 cm x 8 cm at its greatest width and length. The wound VAC continues to be very effective at protecting the wound from fecal soilage and appears to be encouraging growth of granulation tissue. Patient was actively stooling liquid stool during wound vac change. However, no stool present at site of wound. (6) Protein-calorie malnutrition, severe: Impression: His PO intake is adequate. Today, he ate 75% of breakfast and 50% of lunch. Patient reports significant weight loss of approximately 20kg in the last 5 months. Cath Lab Technologist has been consulted and patient is actively being seen by dietary services. (7) Sepsis: Treated for sepsis secondary to catheter associated UTI with IV abx. His sepsis is now resolved. (8) Pressure injury of right calf, stage 4: Impression: The wound bed is approximately 30% fibrinous slough. The wound bed has a rim of beefy granulation tissue. The wound itself measures 2.5 cm wide by 7 cm long and there is no significant depth. Patient has multiple small, scattered sites of eschar on his toes. Per Wound care KINDERGART[employer] ASSISTANT recommendations, "nursing staff to apply betadine daily to maintain stable eschar." Ankle Branchial Index and duplex scan of BLE completed on 12/19/24. This patient would likely benefit from vascular surgery consultation. (9) CHF (congestive heart failure): has concerns about the patient taking Jardiance. Risks/benefits discussed with . Current plan is to discharge patient to SNF off of Jardiance. Per outpatient cardiology notes ([facility] in [place] with Dr. Lindsey on 11/20/24), patient's ejection fraction is 44% per echocardiogram completed at . 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 Patient is recommended to have 3 month follow up with Dr. Lindsey (in early January). Per cardiology notes from 09/01/24, Watchman procedure recommended at [facility]. However, patient has been unable to complete procedure due to poor health status. (10) Atrial fibrillation: Impression: Anticoagulation (eliquis) continued. On beta mp (carvedilol); AM dose held per parameters, HR remains <100. Qualifiers: ALLERGIES Allergies Allergy/AdvReac Type Severity Reaction Status Date / Time No Known Drug Allergies Allergy Verified 12/17/24 09:51 MEDICATIONS Ambulatory Orders Medication Instructions Recorded Confirmed ascorbic acid (vitamin C) 1,000 mg 1,000 mg PO DAILY 10/05/20 12/17/24 tablet multivitamin 1 ea PO DAILY 10/05/20 12/17/24 atorvastatin 40 mg tablet (Lipitor) 40 mg PO QDAY #90 tabs 10/16/24 12/17/24 clopidogrel 75 mg tablet 75 mg PO QDAY #90 tabs 10/16/24 12/17/24 empagliflozin 10 mg tablet 10 mg PO QDAY #90 tabs 10/16/24 12/17/24 ezetimibe 10 mg tablet 10 mg PO QDAY #90 tabs 10/16/24 12/17/24 fluticasone propionate 50 1 spray intranasal DAILY #16 grams 10/16/24 12/17/24 mcg/actuation nasal spray,suspension gabapentin 300 mg capsule 300 mg PO BID #180 caps 10/16/24 12/17/24 lisinopril 5 mg tablet 5 mg PO QDAY #90 tabs 10/16/24 12/17/24 nitroglycerin 0.4 mg sublingual 0.4 mg sublingual Q5M PRN chest 10/16/24 12/17/24 tablet pain #20 tabs spironolactone 25 mg tablet 25 mg PO QDAY #90 tabs 10/16/24 12/17/24 tiotropium bromide 2.5 2 inh inhalation QAM #4 grams 10/16/24 12/17/24 mcg/actuation mist for inhalation (Spiriva Respimat) apixaban 5 mg tablet 5 mg PO BID 12/09/24 12/17/24 carvedilol 3.125 mg tablet 3.125 mg PO BID 12/09/24 12/17/24 oxycodone 5 mg tablet 2.5 mg PO Q4H PRN pain 12/09/24 12/17/24 acetaminophen 325 mg capsule 650 mg PO Q4H PRN fever or pain 12/17/24 12/17/24 guaifenesin 600 mg tablet, 600 mg PO BID PRN congestion 12/17/24 12/17/24 extended release 12 hr (Mucinex) lansoprazole 30 mg delayed 60 mg PO DAILY 12/17/24 12/17/24 release,disintegrating tablet albuterol sulfate 2.5 mg/3 mL 2.5 mg (3 mL) inhalation RTQ4H PRN 12/23/24 (0.083 %) solution for nebulization Wheezing #180 mL vancomycin 125 mg capsule 125 mg PO QID #16 caps 12/23/24 PHYSICAL EXAM AT DISCHARGE Vital Signs: Vital Signs x48h Temp Pulse Resp BP Pulse Ox 12/23/24 08:12 37.3 C 84 26 H 107/56 L 97 Physical Exam Other/Comments: General Appearance: positive No acute distress and Alert Eyes Bilateral: positive Normal inspection ENT: positive ENT inspection nml Neck: positive Nml inspection Respiratory: positive Rhonchi Cardiovascular: positive Regular rate & rhythm Abdomen: positive Non-tender and No distention Back: positive Nml inspection Skin: positive Color nml, Dry and Decubitus (Sacrum; Right calf - Two wound vacuums in place; functioning well with no evidence of air leaks. ) Extremities: positive Non-tender and No pedal edema Neurologic/Psychiatric: positive Oriented x3 LABS 12/23/24 05:43 12/23/24 05:43 SEPSIS Current Stage of Sepsis: Resolved Possible source of Sepsis: Genitourinary Sepsis Criteria: WBC count greater than 12,000 or less than 4000, SPIN INSTRUCTOR: altered consciousness (unrelated to primary neuro pathology) and MAP less than 65 mmHg TIME SPENT Time Spent in Discharge (Minutes): 50 Discharge Plan Discharge Condition: Serious Prescriptions: New albuterol sulfate 2.5 mg /3 mL (0.083 %) Solution For Nebulization 2.5 mg inhalation RTQ4H PRN (Reason: Wheezing) Qty: 180 0RF vancomycin 125 mg Capsule 125 mg PO QID Qty: 16 0RF Saccharomyces boulardii 250 mg Capsule 500 mg PO BIDWM Qty: 60 0RF sodium chloride 1,000 mg Tablet,Soluble 2,000 mg PO BID Qty: 60 0RF Continued atorvastatin [Lipitor] 40 mg tablet 40 mg PO QDAY Qty: 90 3RF clopidogrel 75 mg tablet 75 mg PO QDAY Qty: 90 3RF ezetimibe 10 mg tablet 10 mg PO QDAY Qty: 90 3RF fluticasone propionate 50 mcg/actuation spray,suspension 1 spray intranasal DAILY Qty: 16 3RF gabapentin 300 mg capsule 300 mg PO BID Qty: 180 3RF nitroglycerin 0.4 mg tablet, sublingual 0.4 mg sublingual Q5M PRN (Reason: chest pain) Qty: 20 1RF Rx Instructions: do not exceed 3 doses per episode Spiriva Respimat 2.5 mcg/actuation mist 2 inh inhalation QAM Qty: 4 3RF multivitamin 1 EACH tablet 1 ea PO DAILY ascorbic acid (vitamin C) 1,000 MG tablet 1,000 mg PO DAILY carvedilol 3.125 mg tablet 3.125 mg PO BID Rx Instructions: must administer with a meal/food apixaban 5 mg tablet 5 mg PO BID oxycodone 5 mg tablet 2.5 mg PO Q4H PRN (Reason: pain) acetaminophen 325 mg capsule 650 mg PO Q4H PRN (Reason: fever or pain) Rx Instructions: NTE 3000 APAP daily from all sources lansoprazole 30 mg tablet,disintegrat, delay rel 60 mg PO DAILY Patient Comments: Before breakfast guaifenesin [Mucinex] 600 mg tablet extended release 12hr 600 mg PO BID PRN (Reason: congestion) Held spironolactone 25 mg tablet 25 mg PO QDAY Qty: 90 3RF Hold Instructions: hold until SBP consistently above 110 Discontinued empagliflozin 10 mg tablet 10 mg PO QDAY Qty: 90 3RF lisinopril 5 mg tablet 5 mg PO QDAY Qty: 90 3RF Activity Restrictions: Activity as Tolerated Diet: Regular Print Language: Armenian Stand Alone Forms: SNF Discharge, PCP List
[2024-12-23] MEDS ORDERED: ASCORBIC ACID 500 MG TABLET PO SCH (17:00)
== END 2024-12-23 14:50 | DRG 698 ==
LOC: ED 09:38 → MS3 12:09
PROVIDERS: ADMIT Physician Assistant Medical; ATTEND Physician Assistant Medical
DX: Z91.85 Personal history of military service; Z87.891 Personal history of nicotine dependence; Z79.899 Other long term (current) drug therapy; A41.59 Other Gram-negative sepsis; N39.0 Urinary tract infection, site not specified; I25.10 Atherosclerotic heart disease of native coronary artery without angina pectoris; I95.9 Hypotension, unspecified; R33.9 Retention of urine, unspecified; L89.894 Pressure ulcer of other site, stage 4; Z68.1 Body mass index [BMI] 19.9 or less, adult; Z74.01 Bed confinement status; E43 Unspecified severe protein-calorie malnutrition; R73.9 Hyperglycemia, unspecified; L89.154 Pressure ulcer of sacral region, stage 4; S91.105A Unspecified open wound of left lesser toe(s) without damage to nail, initial encounter; E87.1 Hypo-osmolality and hyponatremia; T83.511A Infection and inflammatory reaction due to indwelling urethral catheter, initial encounter; J44.9 Chronic obstructive pulmonary disease, unspecified; Z79.01 Long term (current) use of anticoagulants; R65.20 Severe sepsis without septic shock; A04.72 Enterocolitis due to Clostridium difficile, not specified as recurrent; I48.91 Unspecified atrial fibrillation; Z91.82 Personal history of military deployment; D64.9 Anemia, unspecified; S91.101A Unspecified open wound of right great toe without damage to nail, initial encounter; I25.2 Old myocardial infarction; K59.01 Slow transit constipation; Z95.5 Presence of coronary angioplasty implant and graft; E11.9 Type 2 diabetes mellitus without complications; A41.9 Sepsis, unspecified organism; I50.9 Heart failure, unspecified; G93.41 Metabolic encephalopathy